=== PATIENT | male | born 1945 | race Caucasian/White ===

== ENCOUNTER 2017-03-10 20:35 | Inpatient (IN) ==
[2017-03-10] MEDS ORDERED: NS 1,000 ML IV ONE (20:54)
[2017-03-10] MEDS: SALINE FLUSH 10ml SYRINGE IVF PRN ×2 (21:03→21:29)
[2017-03-10] MEDS ORDERED: KETOROLAC 30 MG/ML INJECTION IVP ONE (21:20)
[2017-03-10] MEDS ORDERED: ACETAMINOPHEN 500 MG TABLET PO ONE (21:20)
--- NOTE | 2017-03-10 21:20 | Emergency Department Report ---
Fever HPI - General Chief Complaint: Fever Stated Complaint: fever, fatigue, weakness Time Seen by Provider: 03/10/17 20:38 Source: patient, family Mode of arrival: ambulatory Limitations: no limitations - History of Present Illness HPI Narrative: Patient has been having profound weakness, fatigue, shortness of breath with exertion, fluctuating fevers, and mild aching abdominal pain for 2-1/2 weeks. Patient has been seen several times as an outpatient with Dr. Zarate, has had negative lab testing, negative flu testing 2, a normal chest x-ray, and was told that he was dehydrated. Patient has had IV fluids as an outpatient as well. This weekend patient began running higher fevers up to 101.8, with increasing symptoms of fatigue and shortness of breath on exertion. - Related Data Home Medications Medication Instructions Recorded Confirmed Aspirin [Aspir 81] 81 mg PO DAILY #0 03/09/11 03/10/17 Cetirizine HCl 10 mg PO DAILY #0 03/09/11 03/10/17 Lisinopril 20 mg PO DAILY #0 03/09/11 03/10/17 Meloxicam 15 mg PO DAILY #0 03/09/11 03/10/17 Metoprolol Tartrate 50 mg PO HS #0 03/09/11 03/10/17 Mometasone Furoate [Nasonex] 2 spray NS PRN #0 03/09/11 03/10/17 Multivitamins (Multivitamin) 1 tab PO DAILY #0 03/09/11 03/10/17 Omeprazole 20 mg PO DAILY #0 03/09/11 03/10/17 Simvastatin 40 mg PO HS #0 03/09/11 03/10/17 Lisinopril/Hctz 11/29.5 [Prinzide 2 tab PO DAILY 03/10/17 03/10/17 10.5] Metoprolol Tartrate 100 mg PO DAILY 03/10/17 03/10/17 Allergies Allergy/AdvReac Type Severity Reaction Status Date / Time amoxicillin Allergy Mild Rash Verified 03/10/17 21:43 Review of Systems All systems: reviewed and negative except as stated PFSH Patient Stated Medical History Hypertension Yes Gastroesophageal Reflux Yes Disease Hypertension High cholesterol GERD Surgical History: Tonsillectomy - Social History Smoking status: Never smoker Substance use type: does not use Alcohol intake frequency: does not drink Physical Exam - Limitations Limitations: no limitations - General General appearance: alert, other (on initial presentation patient had low blood pressure and was diaphoretic after walking from the car to the lobby. After being placed on a cot in a flat/supine position patient's blood pressure improved to 98/57 and his diaphoresis resolved.) - Normal Exams: Head:: Normocephalic without trauma Eyes:: Pupils are PERRLA w/ EOMI, No scleral icterus, irritation, or foreign bodies noted ENMT:: No facial trauma, nasal exudates, pharyngeal erythema, or exudates are noted Neck:: Full range of motion, without adenopathy, JVD, bruits or thyromegaly Chest/Respirations:: Clear all marquez, with good airflow, and symmetry bilaterally Cardiovascular:: Regular rate and rhythm, without murmur or gallop, Pulses 2+ all extremities, capillary refill, <2 seconds all extremities Abdomen:: Bowel sounds positive, soft, non-tender, non-distended, no hepatosplenomegaly, masses or bruits noted Lymphatic:: No lymphadenopathy, or lymphedema noted Musculoskeletal:: No tenderness, or deformity noted, good range of motion, all extremities Integumentary:: No rashes, hives, or bruising noted, hair and nails, without abnormality Neurological:: Patient is alert, and oriented, cranial nerves, motor/sensory/ cerebellar, exams w/o gross deficits, to observation Psychiatric:: Patient exhibits, appropriate attention, emotion and affect - Abdominal Exam Abdominal exam: Present: soft, tenderness (mild right sided tenderness, no guarding no rebounding, no point tenderness), diminished bowel sounds. Absent: distention Course Vital Signs Temperature 97.6 F 03/10/17 20:41 Pulse Rate 74 03/10/17 20:41 Respiratory Rate 16 03/10/17 20:41 Blood Pressure 83/52 03/10/17 20:41 Pulse Oximetry 94 03/10/17 20:41 Temperature 97.6 F 03/10/17 20:41 Pulse Rate 67 03/10/17 22:30 Respiratory Rate 19 03/10/17 22:30 Blood Pressure 88/52 03/10/17 22:30 Pulse Oximetry 97 03/10/17 22:30 Fever - MDM Narrative Medical decision making narrative: Patient given 1 L saline IV fluid bolus, Toradol 30 mg, Tylenol 1 g CBC, CMP, respiratory panel, chest x-ray, UA all normal. After 1 L normal saline , patient continues to be hypotensive, but is not tachycardic. He does state that he feels better after the IV fluids. Case is discussed with Dr. Souza, we will admit for persistent hypotension associated with febrile illness. Of note, nurses were talking with the patient and after full review of systems in which the patient denied diarrhea, he admitted that he had only had a few "watery stools today." - Lab Data Result diagrams: 03/10/17 21:06 03/10/17 21:06 Lab Results 03/10/17 03/10/17 03/10/17 Range/Units 21:06 21:06 21:12 WBC 7.8 (4.5-11.0) T/MM3 RBC 4.11 L (4.50-5.90) M/MM3 Hgb 13.0 L (13.5-17.5) GM/DL Hct 37.1 L (41-53) % MCV 90.3 (80-100) UM3 MCH 31.6 (26-34) UUG MCHC 35.0 (31-37) GM/DL RDW Std Deviation 48.2 (36.9-50.2) FL Plt Count 190 (130-400) T/MM3 MPV 10.6 (9.4-12.4) UM3 Immature Gran % (Auto) 0.4 (0.0-0.5) % Neut % (Auto) 52.9 (33-66) % Lymph % (Auto) 34.8 (23-45) % [place] % (Auto) 9.6 H (0-9.0) % Eos % (Auto) 0.4 (0-4) % Baso % (Auto) 1.9 (0-2) % Neut # (Auto) 4.1 (1.8-7.7) T/MM3 Lymph # (Auto) 2.7 (1-4.8) T/MM3 [place] # (Auto) 0.8 (0-0.8) T/MM3 Eos # (Auto) 0.0 (0-0.5) T/MM3 Baso # (Auto) 0.2 (0-0.2) T/MM3 Abs Immat Gran (auto) 0.03 (0.00-0.03) T/MM3 Turbidity < 20 (0-20) Sodium 134 (134-144) MEQ/L Potassium 3.2 L (3.6-5) MEQ/L Chloride 100 (98-107) MEQ/L Carbon Dioxide 26 (22-30) MEQ/L Anion Gap 8 (5-15) MEQ/L BUN 21.0 H (9-20) MG/DL Creatinine 1.7 H (0.8-1.5) MG/DL GFR Calculation 40 BUN/Creatinine Ratio 12 (6-26) RATIO Glucose 112 H (75-110) MG/DL Calculated Osmolality 262 (261-280) MOSM/KG Calcium 7.8 L (8.4-10.2) MG/DL Total Bilirubin 0.60 (0.20-1.30) MG/DL Conjugated Bilirubin 0.00 (0.00-0.30) MG/DL Unconjugated Bilirubin 0.20 (0.00-1.1) MG/DL Icterus Index < 2 (0-7) AST 81 H (17-59) U/L ALT 87 H (21-72) U/L Alkaline Phosphatase 92 (38-126) U/L Troponin I < 0.012 (0-0.12) ng/ml B-Natriuretic Peptide 248 H (0-175) pg/mL Total Protein 6.8 (6.3-8.2) G/DL Albumin 3.4 L (3.5-5.0) G/DL Globulin 3.4 (2.4-3.6) G/DL Albumin/Globulin Ratio 1.0 L (1.1-2.2) RATIO Plasma Lactate 1.1 (0.6-2.2) MMOL/L Specimen Hemolysis < 15 (0-25) Ur Collection Type Urine Color (YELLOW) Urine Clarity Urine pH (5.0-8.0) Ur Specific [place] (1.015-1.025) Urine Protein (NEGATIVE) Urine Glucose (UA) (NEGATIVE) Urine Ketones (NEGATIVE) Urine Occult Blood (NEGATIVE) Urine Nitrate (NEGATIVE) Urine Bilirubin (NEGATIVE) Urine Urobilinogen (NORMAL) EU/DL Ur Leukocyte Esterase (NEGATIVE) Urinalysis Comment Adenovirus (PCR) Negative (Negative) B.parapertussis DNA PCR Negative (Negative) C. pneumoniae DNA (PCR) Negative (Negative) Coronavirus OC43 (PCR) Negative (Negative) Coronavirus HKU1 (PCR) Negative (Negative) Coronavirus 229E (PCR) Negative (Negative) Coronavirus NL63 (PCR) Negative (Negative) Human Metapneumovir PCR Negative (Negative) Influenza Type A (PCR) Negative (Negative) Influenza Type B (PCR) Negative (Negative) M. pneumoniae (PCR) Negative (Negative) Parainfluenza 1 (PCR) Negative (Negative) Parainfluenza 2 (PCR) Negative (Negative) Parainfluenza 3 (PCR) Negative (Negative) Parainfluenza 4 (PCR) Negative (Negative) RSV (PCR) Negative (Negative) Entero/Rhino (PCR) Negative (Negative) 03/10/17 Range/Units 23:44 WBC (4.5-11.0) T/MM3 RBC (4.50-5.90) M/MM3 Hgb (13.5-17.5) GM/DL Hct (41-53) % MCV (80-100) UM3 MCH (26-34) UUG MCHC (31-37) GM/DL RDW Std Deviation (36.9-50.2) FL Plt Count (130-400) T/MM3 MPV (9.4-12.4) UM3 Immature Gran % (Auto) (0.0-0.5) % Neut % (Auto) (33-66) % Lymph % (Auto) (23-45) % [place] % (Auto) (0-9.0) % Eos % (Auto) (0-4) % Baso % (Auto) (0-2) % Neut # (Auto) (1.8-7.7) T/MM3 Lymph # (Auto) (1-4.8) T/MM3 [place] # (Auto) (0-0.8) T/MM3 Eos # (Auto) (0-0.5) T/MM3 Baso # (Auto) (0-0.2) T/MM3 Abs Immat Gran (auto) (0.00-0.03) T/MM3 Turbidity (0-20) Sodium (134-144) MEQ/L Potassium (3.6-5) MEQ/L Chloride (98-107) MEQ/L Carbon Dioxide (22-30) MEQ/L Anion Gap (5-15) MEQ/L BUN (9-20) MG/DL Creatinine (0.8-1.5) MG/DL GFR Calculation BUN/Creatinine Ratio (6-26) RATIO Glucose (75-110) MG/DL Calculated Osmolality (261-280) MOSM/KG Calcium (8.4-10.2) MG/DL Total Bilirubin (0.20-1.30) MG/DL Conjugated Bilirubin (0.00-0.30) MG/DL Unconjugated Bilirubin (0.00-1.1) MG/DL Icterus Index (0-7) AST (17-59) U/L ALT (21-72) U/L Alkaline Phosphatase (38-126) U/L Troponin I (0-0.12) ng/ml B-Natriuretic Peptide (0-175) pg/mL Total Protein (6.3-8.2) G/DL Albumin (3.5-5.0) G/DL Globulin (2.4-3.6) G/DL Albumin/Globulin Ratio (1.1-2.2) RATIO Plasma Lactate (0.6-2.2) MMOL/L Specimen Hemolysis (0-25) Ur Collection Type Urine, void-cc/notcc Urine Color Yellow (YELLOW) Urine Clarity Sl cloudy Urine pH 5.5 (5.0-8.0) Ur Specific [place] 1.020 (1.015-1.025) Urine Protein Trace A (NEGATIVE) Urine Glucose (UA) Negative (NEGATIVE) Urine Ketones Negative (NEGATIVE) Urine Occult Blood Trace-intact (NEGATIVE) Urine Nitrate Negative (NEGATIVE) Urine Bilirubin Negative (NEGATIVE) Urine Urobilinogen 0.2 (NORMAL) EU/DL Ur Leukocyte Esterase Negative (NEGATIVE) Urinalysis Comment Microscopic not ind. Adenovirus (PCR) (Negative) B.parapertussis DNA PCR (Negative) C. pneumoniae DNA (PCR) (Negative) Coronavirus OC43 (PCR) (Negative) Coronavirus HKU1 (PCR) (Negative) Coronavirus 229E (PCR) (Negative) Coronavirus NL63 (PCR) (Negative) Human Metapneumovir PCR (Negative) Influenza Type A (PCR) (Negative) Influenza Type B (PCR) (Negative) M. pneumoniae (PCR) (Negative) Parainfluenza 1 (PCR) (Negative) Parainfluenza 2 (PCR) (Negative) Parainfluenza 3 (PCR) (Negative) Parainfluenza 4 (PCR) (Negative) RSV (PCR) (Negative) Entero/Rhino (PCR) (Negative) Disposition Clinical Impression: Febrile illness, acute Hypotension Qualifiers: Hypotension type: unspecified hypotension type Qualified Code(s): I95.9 - Hypotension, unspecified Disposition: 02 To [facility] [place] Acute Care Condition: Improved Prescriptions: No Action Omeprazole 20 mg PO DAILY #0 Metoprolol Tartrate 50 mg PO HS #0 Lisinopril 20 mg PO DAILY #0 Simvastatin 40 mg PO HS #0 Meloxicam 15 mg PO DAILY #0 Multivitamins (Multivitamin) 1 tab PO DAILY #0 Lisinopril/Hctz 10/12.5 [Prinzide 10/12.5] 2 tab PO DAILY Cetirizine HCl 10 mg PO DAILY #0 Mometasone Furoate [Nasonex] 2 spray NS PRN #0 Aspirin [Aspir 81] 81 mg PO DAILY #0 Metoprolol Tartrate 100 mg PO DAILY Referrals: Di Linton DO [Family Provider] - - Seen By: physician
[2017-03-11] MEDS ORDERED: ACETAMINOPHEN 650 MG SUPPOSITORY PR PRN (01:06)
[2017-03-11] MEDS ORDERED: ONDANSETRON 4 MG/2 ML INJECTION IVP PRN (01:06)
[2017-03-11] MEDS: NS with KCL 20 mEq 1,000 ML IV SCH ×7 (01:20→22:13)
[2017-03-11 01:35] VITALS: BMI 35.8
--- NOTE | 2017-03-11 02:00 | History & Physical Report ---
History of Present Illness Date: 03/11/17 Chief complaint: weakness HPI: Patient seen with nursing assitance on 03/11/2017 via telemedicine. Mr. Fatima is a 71yo man with h/o HTN, dyslipidemia, and class 2 obesity but no DM2, CAD, or CVA hx. He has been weak progressively for over a week with inability to ambulate today, but no syncope. He has been lightheaded with standing. No pain, rashes, sob. No recent medication changes. He has not had a SBP less than 90 that he knows of before. Review of Systems All systems PM: 10-point ROS was reviewed, no additional remarkable complaints except Past Medical History Patient Stated Medical History Hypertension Yes Gastroesophageal Reflux Yes Disease Surgical History: Tonsillectomy Family History Updates: diabetes in both parents with father dying from complications of perforated viscus - Social History Smoking status: Never smoker Alcohol intake frequency: does not drink Housing: house Household members: spouse Medications Home Medications Medication Instructions Recorded Confirmed Type Aspirin [Aspir 81] 81 mg PO DAILY #0 03/09/11 03/10/17 History Cetirizine HCl 10 mg PO DAILY #0 03/09/11 03/10/17 History Lisinopril 20 mg PO DAILY #0 03/09/11 03/10/17 History Meloxicam 15 mg PO DAILY #0 03/09/11 03/10/17 History Metoprolol Tartrate 50 mg PO HS #0 03/09/11 03/10/17 History Mometasone Furoate [Nasonex] 2 spray NS PRN #0 03/09/11 03/10/17 History Multivitamins (Multivitamin) 1 tab PO DAILY #0 03/09/11 03/10/17 History Omeprazole 20 mg PO DAILY #0 03/09/11 03/10/17 History Simvastatin 40 mg PO HS #0 03/09/11 03/10/17 History Lisinopril/Hctz 11/29.5 [Prinzide 2 tab PO DAILY 03/10/17 03/10/17 History 11/29.5] Metoprolol Tartrate 100 mg PO DAILY 03/10/17 03/10/17 History Allergies Allergy/AdvReac Type Severity Reaction Status Date / Time amoxicillin Allergy Mild Rash Verified 03/11/17 01:25 Exam Vital Signs: Temperature 96.3 F L 03/11/17 01:21 Pulse Rate 73 03/11/17 01:21 Respiratory Rate 20 03/11/17 01:21 Blood Pressure 105/54 03/11/17 01:21 Pulse Oximetry 97 03/11/17 01:21 Telemetry Rhythm: Sinus Rhythm Height/Weight/BMI: Height 1.78 m Weight 113.2 kg Body Mass Index 35.8 - Constitutional Present: no acute distress - Routine HEENT Exam Head: Present: normocephalic Eye: Present: EOMI - Routine Neck Exam Present: full ROM - Routine Respiratory Exam Present: CTA bilaterally. Absent: accessory muscle use, prolonged expiratory phase, wheezes - Routine Cardiovascular Exam Present: RRR, S1, S2, no murmur - Routine Abdominal Exam Present: soft, normoactive bowel sounds, distended - Routine Extremities Exam Absent: cyanosis, clubbing - Routine Back/Spine/Pelvis Exam Back/Spine: Present: full ROM - Routine Skin Exam Present: intact. Absent: cyanosis - Routine Neurological Exam Present: alert, oriented X3, CN II-XII intact - Routine Psychiatric Exam Present: normal affect Results - Labs CBC & Chem 7: 03/11/17 08:16 03/11/17 11:49 Assessment and Plan (1) Hypotension Current visit: Yes Status: Acute (2) Essential hypertension Current visit: Yes Status: Acute (3) Dyslipidemia Current visit: Yes Status: Acute (4) Obesity (BMI 35.0-39.9 without comorbidity) Current visit: Yes Status: Acute (5) CKD (chronic kidney disease) stage 3, GFR 30-59 ml/min Current visit: Yes Status: Acute Assessment and Plan: 1. Weakness and debility likely due to hypotension et al. Uncertain if just all due to antihypertensives with those to be held. No obvious infection, but need UA. Check TSH, replace K and recheck with Mg. Check inflammatory markers and cortisol. 2. Essential HTN--hold meds with no h/o arrhythmias. Tele. 3. Dyslipidemia on statin. 4. Hyperglycemia with class 2 obesity BMI 35.8, but not to diabetic level. Recheck. 5. CKD3? Recently as high as creat 2.1, hydrated and recheck. DVT Prophylaxis: SCD's Resuscitation Status: Full Code - Physician Narrative Physician: Elza Li MD Narrative: Date: 03/11/17 Time: 1020 Dr. Calle's note reviewed. Mr. Fatima interviewed and examined. CC: Weakness, fever HPI: Damion was seen this morning after hospitalization overnight for progressive weakness over the past 7 days accompanied by fevers up to 101.8 at home. He describes some generalized lower abdominal cramps with mild nausea but no emesis. He reports having loose stools. He denies cough or urinary symptoms. Oral intake has been poor during this time. He reports having to force himself to eat or drink and that everything tastes bad. He saw his primary care physician last week and was instructed to drink Gatorade or Powerade which he's been trying to do but reports even that has been an effort. He's been lightheaded standing and blood pressure at home was less than 90; on arrival in the emergency room blood pressure was 83/52. Temperature was low overnight. Patient describes having generalized myalgias in addition to symptoms described above but reports that he had an influenza swab done in the emergency room and at Dr. Linton's office both of which were negative. PH/SH/FH: agree with that recorded above with additional history of hyperlipidemia, DJD, obstructive sleep apnea with home CPAP, and BPH. Remainder of past histories are as described by Dr. Calle. Patient's is his alternate decision maker and he is a full code. ROS: 10 point review as per Dr. Calle with additions of the bad meniscus in his knee, chronic hearing loss, trouble swallowing for about 3 days, and chronic exertional dyspnea. EXAM: General-NAD, alert, fluent speech; 98.7, 95, 111/65 HEENT-PERRL, EOMI without nystagmus, conjunctiva clear, sclera anicteric, conjugate gaze, facial structures symmetric, oropharynx dry, neck supple and without adenopathy Lungs-respirations nonlabored, good airflow, breath sounds clear Cardiac-regular rhythm, S1-S2, tachycardic Abd-obese, soft, tender to palpation in the epigastrium/right upper quadrant and periumbilical region with guarding; Owen sign positive, diminished bowel sounds Ext-without edema Skin-without rash or wounds Neuro-cranial nerves 3-12 intact, motor tone/power normal, MAEW, no tremor, sensation intact to light touch 4 extremities Psych-calm, cooperative DATA: White count 6.5, differential unremarkable, hemoglobin 12.9; electrolytes unremarkable, BUN 20, creatinine 1.6; bilirubin/alkaline phosphatase within normal limits, AST 102, ALT 97 Lactic acid 1.1, procalcitonin 0.48, CRP 49 TSH 1.2, morning cortisol pending Urinalysis with 5-10 WBCs, negative nitrite, negative ketones Urine sodium 29, urine creatinine 205 Chest x-ray by my review unremarkable; EKG also reviewed by myself demonstrating sinus rhythm with normal waveforms. A/P: Hypotension Abdominal pain Transaminitis Dehydration, FeNa-0.17% Hypokalemia, POA Febrile illness Anorexia, present to admission CKD, stage III Hypertension Hyperlipidemia Obesity, BMI 36.1 Damion presents with 1 week anorexia/poor intake of fluids with increasing dizziness and weakness suggesting dehydration. Urine sodium/fractional excretion consistent with dehydration. Hydration initiated overnight in conjunction with potassium replacement; continues to require IV fluids at this time. Abdomen is quite tender especially in the upper abdomen and right upper quadrant. Will image with gallbladder sonogram due to renal insufficiency but CT may be needed. Switch to IV PPI, hold oral antihypertensives. Anticipate surgical consultation due to marked tenderness. Lactic acid/procalcitonin are not elevated. Blood cultures pending. Continue telemetry. Sepsis Assessment - Evaluation SIRS Criteria: temperature < 96.8 (document), temperature > 100.9 (by history), RR > 20 Severe Sepsis: hypotension (SBP <90 or MAP <65 x2 readings) Hospital Course Summary Disclaimer: The visit summary below is not to be considered part of the above Progress Note.
--- NOTE | 2017-03-11 07:38 | XRay Report ---
Indication: cough, fever, SOB XR chest 2V: Comparison: 03/06/2017 Technique: PA and lateral chest Findings: Patient showed similar heart size the previous examination with no new focal parenchymal consolidations or pleural effusions. No acute new bony findings are identified. Central vascularity and mediastinum are stable. Impression: Little change since previous study with no acute new findings. .
[2017-03-11] MEDS ORDERED: OMEPRAZOLE 20 MG CAPSULE PO SCH (09:00)
[2017-03-11] MEDS: CETIRIZINE 10 MG TABLET PO SCH (09:55)
[2017-03-11] MEDS: ASPIRIN *EC* 81 MG TABLET PO SCH (09:55)
--- NOTE | 2017-03-11 16:57 | General Surgery Consult Note ---
Consult date: 03/11/17 Attending Physician: Elza Li MD Reason for consult: abdominal pain [facility] Patient Stated Medical History Hypertension Hypercholesterolemia GERD Arthritis Surgical History: Tonsillectomy,. Right meniscus repair [id number]. Cysto abouat 2010 Dr. Cook, "normal" Family History: diabetes in both parents with father dying from complications of perforated viscus - Social History Smoking status: Never smoker Substance use type: does not use Alcohol intake frequency: does not drink Housing: house Household members: spouse Previous occupational history: [employer], Retired dentist Medications Home Medications Medication Instructions Recorded Confirmed Type Aspirin [Aspir 81] 81 mg PO DAILY #0 03/09/11 03/10/17 History Cetirizine HCl 10 mg PO DAILY #0 03/09/11 03/10/17 History Lisinopril 20 mg PO DAILY #0 03/09/11 03/10/17 History Meloxicam 15 mg PO DAILY #0 03/09/11 03/10/17 History Metoprolol Tartrate 50 mg PO HS #0 03/09/11 03/10/17 History Mometasone Furoate [Nasonex] 2 spray NS PRN #0 03/09/11 03/10/17 History Multivitamins (Multivitamin) 1 tab PO DAILY #0 03/09/11 03/10/17 History Omeprazole 20 mg PO DAILY #0 03/09/11 03/10/17 History Simvastatin 40 mg PO HS #0 03/09/11 03/10/17 History Lisinopril/Hctz 10/12.5 [Prinzide 2 tab PO DAILY 03/10/17 03/10/17 History 10/12.5] Metoprolol Tartrate 100 mg PO DAILY 03/10/17 03/10/17 History Allergies Allergy/AdvReac Type Severity Reaction Status Date / Time amoxicillin Allergy Mild Rash Verified 03/11/17 01:25 Review of Systems - General General: Present: fever, other (fatigue) - Eyes/Ears/Nose/Throat Ear Nose Throat: Present: hearing problems - Respiratory Respiratory: Present: difficulty breathing (on exertion) - Gastrointestinal Gastrointestinal: Present: other (abd pain, GERD) - Musculoskeletal Musculoskeletal: Present: back pain, joint pain (hips and knees) - Neurological Neurological: Present: other (headache) - Vital Signs Last Vital Signs Temp 100.6 F H 03/11/17 15:43 Pulse 110 H 03/11/17 15:43 Resp 18 03/11/17 15:43 BP 109/64 03/11/17 15:43 Pulse Ox 92 03/11/17 15:43 - Laboratory Result Diagrams: 03/11/17 08:16 03/11/17 11:49 General Surgery Results - Results Labs: 03/11/17 08:16 03/11/17 11:49 Hospital Course Summary Disclaimer: The visit summary below is not to be considered part of the above Progress Note.
--- NOTE | 2017-03-11 18:24 | Consultation ---
DATE OF CONSULTATION 03/11/2017 FINDINGS Mr. Fatima is a 71-year-old gentleman whom I was asked to see today as a result of his history and physical findings of abdominal pain. Patient informs me that over the last several weeks he has been developing intermittent fevers and chills. He states that he has become progressively more weak and fatigue. The patient was recently admitted to our hospital for further evaluation. He was found to be hypotensive in the ER. Upon questioning the patient he denies much in the way of abdominal pain. He states that he has had perhaps some minimal discomfort within his left lower quadrant/left midabdomen. Patient states that he did notice today that when the "doctor was examining him" that he did have a component of abdominal discomfort that he had not previously noted. Upon questioning the patient he denies any history for melena, hematochezia or change in bowel habits. His primary complaint was that of intermittent fevers, chills and general malaise. PAST MEDICAL HISTORY, PAST SURGICAL HISTORY, MEDICATIONS, ALLERGIES, SOCIAL HISTORY, FAMILY HISTORY, REVIEW OF SYSTEMS Performed by my nurse practitioner, Kunal Aguero APRN. PHYSICAL EXAMINATION GENERAL: Mr. Fatima this evening did not appear to be in acute distress. VITAL SIGNS: Temperature 100.6, pulse 110, respirations 18, blood pressure 109/ 64, SAO2 92% on room air. HEENT: Normocephalic. Pupils are equally round and react to light and accommodation. CHEST: Clear to auscultation bilaterally. HEART: Regular rate and rhythm. Normal S1 and S2 without gallops, murmurs or clicks. ABDOMEN: For the most part his abdomen was soft and nontender this evening. With fairly firm palpation the patient did complain of some minimal discomfort within the right upper quadrant as well as within the left lower quadrant. This evening there was no component of guarding or rebound. I did not appreciate evidence of hepatosplenomegaly or other abnormal masses. LABORATORY/RADIOGRAPHIC EVALUATION Patient had a CBC today and his white count was 6.5. Hemoglobin is 12.9. No significant left shift was noted. The patient had a CMP today and his AST and ALT were minimally elevated at 102 and 97, respectively. CRP was obtained and found be elevated at 49.0. Lipase was normal 114. Total bilirubin is normal at 0.5. Abdominal ultrasound has been ordered is pending at time of dictation. ASSESSMENT 71-year-old gentleman with a fbutb-co-kmct-week history of intermittent fever, chills and increasing general malaise. Exact etiology unclear. Patient without acute surgical abdomen at this time. PLAN Will await his abdominal sonogram results. As stated above, I do not feel at this point time that the patient has an acute surgical process. Will continue to follow along closely with serial abdominal examinations as well as await his pending abdominal ultrasound results. KATHERINE
[2017-03-11] MEDS: ACETAMINOPHEN 325 MG TABLET PO PRN (19:03)
--- NOTE | 2017-03-11 19:06 | Ultrasound Report ---
Indication: abn LFT, RUQ/epigastric pain PROCEDURE: US gall bladder: Encounter: Initial Comparison: None. FINDINGS: The gallbladder is thin-walled and nondistended without stones. CBD is normal measuring 4.4 mm. The pancreas is largely obscured by bowel gas. The liver is diffusely echogenic in echotexture without focal abnormality. Color flow Doppler ultrasound was used to evaluate the quality of flow within the portal vein and to document flow in the appropriate direction.. The IVC is unremarkable. No free fluid. The right kidney is unremarkable measuring 10.8 cm in length. IMPRESSION: No definite cholelithiasis or evidence for cholecystitis per .
[2017-03-11] MEDS ORDERED: IOHEXOL 300mg/ml 100ml INJECTION ONE (19:30)
[2017-03-11] MEDS ORDERED: NS 100 ML ONE (19:30)
[2017-03-11] MEDS ORDERED: SALINE FLUSH 10ml SYRINGE ONE (19:30)
[2017-03-11] MEDS: PANTOPRAZOLE 40 MG INJECTION IVP SCH (20:26)
[2017-03-11] MEDS: LEVOFLOXACIN PB 750 MG/150 ML BAG IV SCH (20:27)
[2017-03-11] MEDS: SIMVASTATIN 40 MG TABLET PO SCH (20:27)
[2017-03-11] MEDS: NS 1,000 ML IV SCH (22:12)
[2017-03-11] MEDS: MetroNIDAZOLE PB 500 MG/100 ML BAG IV SCH (22:12)
[2017-03-12] MEDS: NS 1,000 ML IV SCH ×4 (01:32→22:35)
[2017-03-12] MEDS: ACETAMINOPHEN 325 MG TABLET PO PRN ×3 (01:34→21:42)
[2017-03-12] MEDS: MetroNIDAZOLE PB 500 MG/100 ML BAG IV SCH ×3 (04:30→21:30)
--- NOTE | 2017-03-12 09:07 | CT Scan Report ---
Indication: fever/abd pain PROCEDURE: CT abdomen pelvis w con: Encounter: Initial Comparison: None. Findings: CT ABDOMEN: Included portions of the lung bases are clear. Heart size normal. No pleural effusion. There is a small hiatal hernia. There are a few small renal cortical cysts. The liver, spleen, kidneys, pancreas, and adrenal glands are otherwise normal. The gallbladder is thin walled and nondistended, without stones. The abdominal aorta is nonaneurysmal with scattered calcific atherosclerotic disease. There is a retroaortic left renal vein. There is no retroperitoneal or mesenteric adenopathy. No definite bowel distention or bowel wall thickening. CT PELVIS: There is pancolonic diverticulosis with both left-sided and right-sided colonic diverticula. No definite peridiverticular inflammatory changes. There is no pelvic sidewall adenopathy. No free fluid. No definite bony destructive process. The urinary bladder is not distended. There is a small bladder diverticulum to the posterior left side of the urinary bladder. The prostate gland is mildly enlarged and heterogeneous with a central calcification and prominent impression on the base of the urinary bladder. A normal appendix is identified. There is moderate degenerative disc disease of the thoracolumbar junction. IMPRESSION: Pancolonic diverticulosis without evidence of diverticulitis.. .
[2017-03-12] MEDS: PANTOPRAZOLE 40 MG INJECTION IVP SCH ×2 (11:52→20:09)
[2017-03-12] MEDS: CETIRIZINE 10 MG TABLET PO SCH (11:54)
[2017-03-12] MEDS: ASPIRIN *EC* 81 MG TABLET PO SCH (11:54)
--- NOTE | 2017-03-12 15:21 | Progress Note ---
- Date 03/12/17 Subjective: Damion was seen with his at bedside this morning. He reports that he had 3 loose, watery stools this morning without any bleeding. He reports being on an antibiotic (believed to be Levaquin) for 7 days starting 02/26 for sinus infection but no other courses of antibiotics in the recent past. Abdominal cramping is improved but not gone. Maximum temperature yesterday was 103.2 but he has subsequently defervesced. He is slightly short of breath and denies cough ; nursing told him he was wheezing earlier today but he has not noted the same. He denied chest pain, palpitations, or nausea. He's been voiding without dysuria. Objective Vital signs: Temperature 98.8 F 03/12/17 08:00 Pulse Rate 112 H 03/12/17 11:17 Respiratory Rate 24 03/12/17 11:17 Blood Pressure 109/67 03/12/17 08:00 Pulse Oximetry 95 03/12/17 11:17 I/O 3378/950 NAD, alert, fluent speech HEENT EOMI, conjunctiva clear, sclera anicteric, oral membranes clear Respirations nonlabored, good airflow, breath sounds clear, no wheezing present Regular rhythm, S1-S2 2, low-grade tachycardia Abdomen obese, soft, tender to palpation in the epigastrium where he smiled peritoneal signs and guarding. Bowel sounds are present. Right upper quadrant less tender than on examination yesterday Extremities without edema Moving all extremities well Height/Weight/BMI: Height 1.78 m Weight 116.3 kg Body Mass Index 35.8 Results - Labs CBC & Chem 7: 03/12/17 04:33 03/12/17 04:33 Labs: S69 B11 L19 M1 Mg 1.9, Phos 2.6, alb 2.7 Stool negative for C. difficile and other enteric pathogens Microbiology Results: Microbiology 03/11/17 19:51 Peripheral/Iv Start Blood Culture - Preliminary Culture Initiated - Results Pending 03/11/17 19:58 Peripheral/Iv Start Blood Culture - Preliminary Culture Initiated - Results Pending - Imaging and Cardiology CT scan - abdomen Status: image reviewed by me (CT scan reviewed by myself reveals multiple diverticulum but no diverticulitis, dilated gall bladder without stones; no evidence of abscess or other acute intra-abdominal pathology) Assessment and Plan (1) Hypotension Current visit: Yes Status: Acute (2) Febrile illness, acute Current visit: Yes Status: Acute Assessment and Plan: Assessment: Hypotension Severe sepsis Abdominal pain Transaminitis Dehydration, FeNa-0.17% Hypokalemia, POA Febrile illness Anorexia, present to admission CKD, stage III Hypertension Hyperlipidemia Obesity, BMI 36.1 Plan: Maximum temperature 102.2 degrees yesterday evening-empirically started on Levaquin/metronidazole for abdominal coverage. Blood cultures 4 negative of present. Imaging does not reveal source for infection, diarrhea today but C. difficile is negative and no other enteric pathogens identified. Overnight patient met criteria for severe sepsis with fever, tachypnea, tachycardia, and creatinine above baseline (although may be due to dehydration) . 11% bands present today but total white count remains normal. Discussed with Dr. Aguilera-clear liquids being initiated, may require EGD although that would not explain fever even if explain pain. Chest x-ray today; was unremarkable prior to hydration. Respiratory viral panel negative. Renal function is improved significantly with hydration and potassium is improving. Acute hepatitis serologies neg in the office; [facility] RN reports patient has had low-grade fevers for the past couple of weeks but sources been unclear, white count consistently normal but transaminases elevated. has copies of AST/ALT from last August when they were normal. - Physician Narrative Narrative: Date: 03/12/17 Time: 1515 Sepsis Assessment - Evaluation SIRS Criteria: temperature > 100.9, pulse > 90 beats/minute Severe Sepsis: Creatinine >2.0 mg/dL or 0.5 mg/dL above baseline Hospital Course Summary Disclaimer: The visit summary below is not to be considered part of the above Progress Note. Hospital Course: 03/11/17 Damion presents with 1 week anorexia/poor intake of fluids with increasing dizziness and weakness suggesting dehydration. Urine sodium/fractional excretion consistent with dehydration. Hydration initiated overnight in conjunction with potassium replacement; continues to require IV fluids at this time. Abdomen is quite tender especially in the upper abdomen and right upper quadrant. Will image with gallbladder sonogram due to renal insufficiency but CT may be needed. Switch to IV PPI, hold oral antihypertensives. Anticipate surgical consultation due to marked tenderness. Lactic acid/procalcitonin are not elevated. Blood cultures pending. Continue telemetry. Biotic subsequently initiated when patient developed temperature of 103 1/23/18 Maximum temperature 102.2 degrees yesterday evening-empirically started on Levaquin/metronidazole for abdominal coverage. Blood cultures 4 negative of present. Imaging does not reveal source for infection, diarrhea today but C. difficile is negative and no other enteric pathogens identified. Overnight patient met criteria for severe sepsis with fever, tachypnea, tachycardia, and creatinine above baseline (although may be due to dehydration) . 11% bands present today but total white count remains normal. Discussed with Dr. Aguilera-clear liquids being initiated, may require EGD although that would not explain fever even if explain pain. Chest x-ray today; was unremarkable prior to hydration. Respiratory viral panel negative. Renal function is improved significantly with hydration and potassium is improving.
--- NOTE | 2017-03-12 16:58 | Progress Note ---
DATE OF SERVICE 03/12/2017 FINDINGS Mr. Kushal lucero was without complaints. He states that he is "hungry." Patient states that his abdominal pain is "about the same." He continues to have some abdominal discomfort within the epigastric region. He denies, however , severe abdominal pain. PHYSICAL EXAM VITAL SIGNS: Temperature 98.8. Pulse is elevated at 112. Blood pressure 109/ 67, SAO2 95% on HEENT: Normocephalic. Pupils are equally round and react to light and accommodation. CHEST: Clear to auscultation bilaterally. HEART: Regular rate and rhythm. Normal S1 and S2 without gallops, murmurs or clicks. ABDOMEN: Palpation of the abdomen does reveal some [id number] tenderness within the epigastric region. There was, however, no evidence for guarding or rebound. I do not appreciate evidence for hepatosplenomegaly or other abnormal masses. LABORATORY/RADIOGRAPHIC EVALUATION The patient had a CBC today and white count is stable at 6.4. Hemoglobin is stable at 11.6. Does have a slight left shift with 11% bands. BMP was obtained and found to be without marked abnormalities. The patient had a gallbladder ultrasound obtained yesterday that did not reveal any evidence for cholelithiasis or evidence for cholecystitis. He has subsequently undergone a CT scan of his abdomen and pelvis. CT scan did not reveal any acute changes. There was evidence for diverticulosis but no evidence for diverticulitis. ASSESSMENT 71-year-old gentleman with a several-week history of intermittent fevers, chills , increasing general malaise. Component of epigastric abdominal discomfort does not appear to be of a surgical process at this time. Peptic ulcer disease is within differential diagnosis. PLAN I do see the patient is already being treated empirically for peptic ulcer disease and is on IV Protonix. Will go ahead and add Carafate 1 g p.o. q.i.d. empirically. Will continue to follow along with serial abdominal examinations. Will begin the patient on clear liquids. If the patient's epigastric abdominal pain persists, may consider proceeding with esophagogastroduodenoscopy for further evaluation. [facility]
--- NOTE | 2017-03-12 17:01 | XRay Report ---
Indication: fever, dyspnea PROCEDURE: XR chest 2V: Encounter: Initial Comparison: 03/10/2017 Findings: Heart size is normal. The lungs are clear. There is no focal opacity to suggest atelectasis or pneumonia. No mediastinal or hilar adenopathy. No pleural effusion. There is no significant tortuosity of the descending thoracic aorta. There is moderate degenerative disc disease of the thoracic spine. IMPRESSION: No acute process. .
[2017-03-12] MEDS: SUCRALFATE 1 GM TABLET PO SCH ×2 (19:20→20:09)
[2017-03-12] MEDS: LEVOFLOXACIN PB 750 MG/150 ML BAG IV SCH (19:20)
[2017-03-12] MEDS: SIMVASTATIN 40 MG TABLET PO SCH (20:09)
[2017-03-12] MEDS: DOXYCYCLINE 100 MG in NS 250ml 250 ML IV SCH (22:35)
[2017-03-13] MEDS: NS 1,000 ML IV SCH ×3 (00:31→21:04)
[2017-03-13] MEDS: MetroNIDAZOLE PB 500 MG/100 ML BAG IV SCH ×2 (03:30→12:57)
[2017-03-13] MEDS: SUCRALFATE 1 GM TABLET PO SCH ×4 (06:06→21:02)
--- NOTE | 2017-03-13 09:10 | Infectious Disease Consult ---
Infectious Disease Consult Date of Consultation: 03/13/17 Requesting Physician: Elza Li Reason for Consultation: fever History of Present Illness: Mr. Fatima is a 71 y/o man who reports that he's been having fever for about 3 weeks. He also reports shaking chills and night sweats. He denies any localizing symptoms. On specific questioning, he reports some abdominal discomfort, but this doesn't seem very severe. He presented to the ED on 03/10 and was admitted. He states Dr. Aguilera gave him carafate for that. He reports a warm feeling in his head with the fever, but won't really call it a headache. He thinks his vision has been blurry intermittently. He denies any other specific complaints. He was hypotensive on admission, but this has resolved. He has had fevers up to 103. WBC is normal, lactate and PCT are normal. His transaminases are increasing. Blood cultures 03/10 and 03/[address] are NGTD[address] CXR and CT A/P have been unremarkable. Gallbladder ultrasound was unremarkable. Dr. Aguilera has seen and doesn't feel that there's any surgical cause for his abdominal pain and fever. He was started on levaquin and flagyl on 03/11, and doxy was added yesterday. Most recent fever was 102 last night. He doesn't think the antibiotics are making him feel much better. He denies any animal exposures, no insect bites. 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 Medications Home Medications Medication Instructions Recorded Confirmed Type Aspirin [Aspir 81] 81 mg PO DAILY #0 03/09/11 03/10/17 History Cetirizine HCl 10 mg PO DAILY #0 03/09/11 03/10/17 History Lisinopril 20 mg PO DAILY #0 03/09/11 03/10/17 History Meloxicam 15 mg PO DAILY #0 03/09/11 03/10/17 History Metoprolol Tartrate 50 mg PO HS #0 03/09/11 03/10/17 History Mometasone Furoate [Nasonex] 2 spray NS PRN #0 03/09/11 03/10/17 History Multivitamins (Multivitamin) 1 tab PO DAILY #0 03/09/11 03/10/17 History Omeprazole 20 mg PO DAILY #0 03/09/11 03/10/17 History Simvastatin 40 mg PO HS #0 03/09/11 03/10/17 History Lisinopril/Hctz 11/29.5 [Prinzide 2 tab PO DAILY 03/10/17 03/10/17 History 11/29.5] Metoprolol Tartrate 100 mg PO DAILY 03/10/17 03/10/17 History Allergies Allergy/AdvReac Type Severity Reaction Status Date / Time amoxicillin Allergy Mild Rash Verified 03/11/17 01:25 [facility] Patient Stated Medical History Hypertension Yes Gastroesophageal Reflux Yes Disease Surgical History: Tonsillectomy,. Right meniscus repair [id number]. Cysto abouat 2010 Dr. Cook, "normal" Family History: Sister and mother both had Parkinson's - Social History Smoking status: Never smoker Current occupational status: retired (dentist) Review of Systems All systems PM: 10-point ROS was reviewed, no additional remarkable complaints except - Constitutional Constitutional: Present: chills, fever(s), night sweats, weakness - EENMT Eyes: Present: blurry vision (intermittent) Mouth/Throat: Absent: sore throat - Cardiovascular Cardiovascular: Absent: chest pain - Respiratory Respiratory: Absent: cough, dyspnea - Gastrointestinal Gastrointestinal: Present: diarrhea (slightly loose). Absent: nausea, vomiting - Genitourinary Genitourinary: Absent: dysuria - Musculoskeletal Musculoskeletal: Present: myalgias ("vibrating sensation in muscles"). Absent: joint swelling - Integumentary/Breasts Integumentary: Absent: erythema, rash - Neurological Neurological: Absent: headache(s) Exam Vital Signs: Temperature 99.9 F 03/13/17 08:22 Pulse Rate 112 H 03/13/17 08:22 Respiratory Rate 24 03/13/17 08:22 Blood Pressure 130/69 03/13/17 08:22 Pulse Oximetry 92 03/13/17 08:22 Height/Weight/BMI: Height 1.78 m Weight 116.3 kg Body Mass Index 35.8 - Constitutional Present: no acute distress, well nourished, well developed - Routine HEENT Exam Head: Present: normocephalic, atraumatic Eye: Present: EOMI, PERRL ENT: Present: mucous membranes moist, oropharynx clear, dentition normal Comments: no tenderness or swelling over temples - Routine Neck Exam Present: supple. Absent: lymphadenopathy - Routine Respiratory Exam Present: CTA bilaterally - Routine Cardiovascular Exam Present: RRR - Routine Abdominal Exam Present: soft, normoactive bowel sounds, non distended. Absent: tenderness - Routine Extremities Exam Absent: cyanosis, clubbing, edema, joint swelling - Routine Skin Exam Present: intact. Absent: wounds, rash - Routine Neurological Exam Present: alert, oriented X3, CN II-XII intact. Absent: motor deficit - Routine Psychiatric Exam Present: normal affect, normal thought process Results - Labs CBC & Chem 7: 03/13/17 04:19 03/13/17 04:19 Microbiology Results: Microbiology 03/11/17 19:51 Peripheral/Iv Start Blood Culture - Preliminary No Growth After 1 Day 03/11/17 19:58 Peripheral/Iv Start Blood Culture - Preliminary No Growth After 1 Day - Impressions Signed Patient: Rodolfo Fatima MR#: [id number] : 1945 Age/Sex: 71 / M ADM Date: 03/11/17 Loc: [facility] DIS Date: = = = = = = = = = = = = = = = = = = = = = = = = = = = = = = = = = = = = = = = = = = = = = = = = = = = = = = = = = = = Date of Exam: 03/11/17 Ordering Provider: Elza Li MD Type of Exam(s): CT abdomen pelvis w con Reason for Exam(s): fever/abd pain Indication: fever/abd pain PROCEDURE: CT abdomen pelvis w con: Encounter: Initial Comparison: None. Findings: CT ABDOMEN: Included portions of the lung bases are clear. Heart size normal. No pleural effusion. There is a small hiatal hernia. There are a few small renal cortical cysts. The liver, spleen, kidneys, pancreas, and adrenal glands are otherwise normal. The gallbladder is thin walled and nondistended, without stones. The abdominal aorta is nonaneurysmal with scattered calcific atherosclerotic disease. There is a retroaortic left renal vein. There is no retroperitoneal or mesenteric adenopathy. No definite bowel distention or bowel wall thickening. CT PELVIS: There is pancolonic diverticulosis with both left-sided and right-sided colonic diverticula. No definite peridiverticular inflammatory changes. There is no pelvic sidewall adenopathy. No free fluid. No definite bony destructive process. The urinary bladder is not distended. There is a small bladder diverticulum to the posterior left side of the urinary bladder. The prostate gland is mildly enlarged and heterogeneous with a central calcification and prominent impression on the base of the urinary bladder. A normal appendix is identified. There is moderate degenerative disc disease of the thoracolumbar junction. IMPRESSION: Pancolonic diverticulosis without evidence of diverticulitis.. . Impression: FUO (fever, chills, night sweats for about 3 weeks) Elevated LFTs Hypotension and dehydration, improved HTN Obesity Dyslipidemia Recommendation: The imaging has essentially ruled out any abscesses or obvious malignancy. I wonder about PMR/GCA or hepatitis. Will check ESR. Consider temporal artery biopsy. Will check hepatitis serologies. Will also check Brucella, Q fever, Histoplasma tests, although he denies any animal exposures. Will check CMV, EBV serologies. I'd recommend stopping the levaquin and flagyl. Continue doxycycline for now.
--- NOTE | 2017-03-13 09:15 | General Surgery Progress Note ---
Subjective Patient reports: still having pain (states generally less than yesterday but increased pain with even small amounts of clear liquids.), fever (states he has episodes of chills then bundles up in the blankets and then gets to Hot and throws them off) - Vital Signs Last Vital Signs Temp 99.9 F 03/13/17 08:22 Pulse 112 H 03/13/17 08:22 Resp 24 03/13/17 08:22 BP 130/69 03/13/17 08:22 Pulse Ox 92 03/13/17 08:22 - Laboratory Result Diagrams: 03/13/17 04:19 03/13/17 04:19 - Microbiogy Microbiology 03/11/17 19:51 Peripheral/Iv Start Blood Culture - Preliminary No Growth After 1 Day 03/11/17 19:58 Peripheral/Iv Start Blood Culture - Preliminary No Growth After 1 Day - Abnormal Exam General: other (skin warm almost feverish and moist to touch) Abdominal: hypoactive bowel sounds, tender (epigastric and left side with moderate palpation) - Normal Exam General: awake, alert, oriented Cardiovascular: regular rate Respiratory: no labored breathing Psychiatric: normal affect Assessment and Plan (1) Abdominal pain Current Visit: Yes Status: Acute Plan: Would probably keep him on clear liquids for now. Dr. Aguilera added Carafate to his regime yesterday which may have helped a little between yesterday and today. Will reevaluate tomorrow and likely make him nothing by mouth after midnight tonight, Hospital Course Summary Disclaimer: The visit summary below is not to be considered part of the above Progress Note. Hospital Course: 03/11/17 Damion presents with 1 week anorexia/poor intake of fluids with increasing dizziness and weakness suggesting dehydration. Urine sodium/fractional excretion consistent with dehydration. Hydration initiated overnight in conjunction with potassium replacement; continues to require IV fluids at this time. Abdomen is quite tender especially in the upper abdomen and right upper quadrant. Will image with gallbladder sonogram due to renal insufficiency but CT may be needed. Switch to IV PPI, hold oral antihypertensives. Anticipate surgical consultation due to marked tenderness. Lactic acid/procalcitonin are not elevated. Blood cultures pending. Continue telemetry. Biotic subsequently initiated when patient developed temperature of 103 03/12/17 Maximum temperature 102.2 degrees yesterday evening-empirically started on Levaquin/metronidazole for abdominal coverage. Blood cultures 4 negative of present. Imaging does not reveal source for infection, diarrhea today but C. difficile is negative and no other enteric pathogens identified. Overnight patient met criteria for severe sepsis with fever, tachypnea, tachycardia, and creatinine above baseline (although may be due to dehydration) . 11% bands present today but total white count remains normal. Discussed with Dr. Aguilera-clear liquids being initiated, may require EGD although that would not explain fever even if explain pain. Chest x-ray today; was unremarkable prior to hydration. Respiratory viral panel negative. Renal function is improved significantly with hydration and potassium is improving.
[2017-03-13] MEDS: CETIRIZINE 10 MG TABLET PO SCH (10:04)
[2017-03-13] MEDS: PANTOPRAZOLE 40 MG INJECTION IVP SCH ×2 (10:04→21:06)
[2017-03-13] MEDS: DOXYCYCLINE 100 MG in NS 250ml 250 ML IV SCH ×2 (10:05→21:03)
[2017-03-13] MEDS: ASPIRIN *EC* 81 MG TABLET PO SCH (12:57)
--- NOTE | 2017-03-13 14:49 | Progress Note ---
- Date 03/13/17 Subjective: Rodolfo was seen with his at bedside this am. He continues to have minor dyspnea with moderate exertional dyspnea but no cough or pleuritic pain. He denies chest pain or palpitations, nausea or vomiting. Abdominal pain has improved but he is tolerated little oral intake reported that he is full after having half of popsicle or half of a cup of broth. He denies reflux or heartburn. His nose is stuffy but he denied sore throat. He had fever with chills and sweats overnight and noticed some brief spasms in the left pectoral muscle lasting only a second or 2 several times overnight. He denies difficulty urinating and urine volume has improved. Objective Vital signs: Temperature 99.9 F 03/13/17 08:22 Pulse Rate 112 H 03/13/17 08:22 Respiratory Rate 24 03/13/17 08:22 Blood Pressure 130/69 03/13/17 08:22 Pulse Oximetry 92 RA 03/13/17 08:22 I/O 3403/475 EXAM General-NAD, alert, hard of hearing; MAXIMUM TEMPERATURE 102.3 at 9 PM last night HEENT-conjunctiva clear, sclera anicteric, EOMI, no splinter hemorrhages noted in palpebral conjunctiva; oral membranes clear although somewhat dry Lungs-nonlabored, good airflow, breath sounds clear anteriorly/posteriorly Cardiac-regular rhythm, S1-S2 Abd-obese, soft, minimal tenderness in the epigastrium without guarding or peritoneal signs, bowel sounds present Ext-trace edema Skin-without rash Neuro-MAEW Psych-calm - Height/Weight/BMI: Height 1.78 m Weight 115.4 kg Body Mass Index 35.8 Results - Labs CBC & Chem 7: 03/13/17 04:19 03/13/17 04:19 Labs: S66 B14 L16 M4 AST 123, ALT 107; bilirubin 0.5, alk phosphatase 81; alb 2.6 Microbiology Results: Microbiology 03/11/17 19:51 Peripheral/Iv Start Blood Culture - Preliminary No Growth After 1 Day 03/11/17 19:58 Peripheral/Iv Start Blood Culture - Preliminary No Growth After 1 Day Assessment and Plan (1) Hypotension Current visit: Yes Status: Acute (2) Febrile illness, acute Current visit: Yes Status: Acute Assessment and Plan: Assessment: Hypotension, resolved Severe sepsis Abdominal pain Transaminitis Dehydration, FeNa-0.17% Hypokalemia, POA Febrile illness Anorexia, present to admission CKD, stage III Hypertension Hyperlipidemia Obesity, BMI 36.1 Plan: Continues to have episodic fevers, started on Levaquin/metronidazole for abdominal coverage 03/11 and doxycycline 03/12. Blood cultures 4 negative at present. White count remains normal although increased bands present. Transaminases slightly higher today-acute hepatitis panel negative in the outpatient office recently. AST/ALT were normal in August 2016. Dr. Jackson saw patient today-will discontinue Levaquin/metronidazole but continue doxycycline pending multiple additional studies that are been ordered as outlined in Dr. Jackson note. Imaging does not reveal source for infection, diarrhea today but C. difficile is negative and no other enteric pathogens identified. Evaluation for noninfectious sources of fever initiated; may require temporal artery biopsy. No visual symptoms described. incidentally mention that the patient had surgery on his left upper eyelid in January by Dr. Bunch. Abdominal symptoms improving, discussed with Dr. Aguilera-advanced to full liquids although anticipate little oral intake. Currently on omeprazole and Carafate. Renal function has stabilized. Telemetry (reviewed by myself) with persistent low-grade sinus tachycardia and occasional PVCs; with improvement in blood pressure will resuming metoprolol at 50 mg twice a day. Total calcium decreased but corrects for low albumin. DVT Prophylaxis: SCD's GI Prophylaxis: other Resuscitation Status: Full Code - Physician Narrative Narrative: Date: 03/13/17 Time: 1445 Hospital Course Summary Disclaimer: The visit summary below is not to be considered part of the above Progress Note. Hospital Course: 03/11/17 Damion presents with 1 week anorexia/poor intake of fluids with increasing dizziness and weakness suggesting dehydration. Urine sodium/fractional excretion consistent with dehydration. Hydration initiated overnight in conjunction with potassium replacement; continues to require IV fluids at this time. Abdomen is quite tender especially in the upper abdomen and right upper quadrant. Will image with gallbladder sonogram due to renal insufficiency but CT may be needed. Switch to IV PPI, hold oral antihypertensives. Anticipate surgical consultation due to marked tenderness. Lactic acid/procalcitonin are not elevated. Blood cultures pending. Continue telemetry. Biotic subsequently initiated when patient developed temperature of 103 03/12/17 Maximum temperature 102.2 degrees yesterday evening-empirically started on Levaquin/metronidazole for abdominal coverage. Blood cultures 4 negative of present. Imaging does not reveal source for infection, diarrhea today but C. difficile is negative and no other enteric pathogens identified. Overnight patient met criteria for severe sepsis with fever, tachypnea, tachycardia, and creatinine above baseline (although may be due to dehydration) . 11% bands present today but total white count remains normal. Doxycycline added for atypical infection given elevated transaminases; Dr. Jackson consulted. Discussed with Dr. Aguilera-clear liquids being initiated, may require EGD although that would not explain fever even if explain pain. Chest x-ray today; was unremarkable prior to hydration. Respiratory viral panel negative. Renal function is improved significantly with hydration and potassium is improving. 03/13/17 Continues to have episodic fevers, started on Levaquin/metronidazole for abdominal coverage 03/11 and doxycycline 03/12. Blood cultures 4 negative at present. White count remains normal although increased bands present. Transaminases slightly higher today-acute hepatitis panel negative in the outpatient office recently. AST/ALT were normal in August 2016. Dr. Jackson saw patient today-will discontinue Levaquin/metronidazole but continue doxycycline pending multiple additional studies that are been ordered as outlined in Dr. Jackson note. Imaging does not reveal source for infection, diarrhea today but C. difficile is negative and no other enteric pathogens identified. Evaluation for noninfectious sources of fever initiated; may require temporal artery biopsy. No visual symptoms described. Abdominal symptoms improving, discussed with Dr. Aguilera-advanced to full liquids although anticipate little oral intake. Currently on omeprazole and Carafate. Renal function has stabilized. Telemetry (reviewed by myself) with persistent low-grade sinus tachycardia and occasional PVCs; with improvement in blood pressure will resuming metoprolol at 50 mg twice a day. Total calcium decreased but corrects for low albumin.
--- NOTE | 2017-03-13 18:25 | Progress Note ---
DATE OF SERVICE 03/13/2017 FINDINGS Mr. Fatima was seen earlier this morning on rounds. He states that he was experiencing less abdominal pain. He states he still does not have much of an appetite. PHYSICAL EXAM VITAL SIGNS: T-max 101.6. The patient remains to be tachycardic with a pulse of 114. Blood pressure is stable at 125/75.. HEENT: Normocephalic. Pupils are equally round and react to light and accommodation. CHEST: Clear to auscultation bilaterally. HEART: Regular rate and rhythm. Normal S1 and S2 without gallops, murmurs or clicks. ABDOMEN: Palpation of the abdomen earlier today revealed it to be soft with less tenderness being noted within the epigastric region. There was no evidence for guarding or rebound. LABORATORY/RADIOGRAPHIC EVALUATION The patient's white count remains stable at 6.1. Hemoglobin stable at 11.9. BMP obtained and found to be without marked abnormalities. I did review Infectious Disease consult. Infectious Disease had ordered multiple additional tests for further evaluation of his fever of unknown origin. There was a mention of questioning temporal artery biopsy. ASSESSMENT 71-year-old gentleman with ongoing fever of unknown origin. Patient with history of increased liver function tests. Patient with history of epigastric abdominal pain that seems to be improving on its own behalf with empiric medical therapy for peptic ulcer disease. The patient remains to be without an acute general surgical process. PLAN Given the improvement of his abdominal pain at this time it was my recommendation that we did not need to proceed with esophagogastroduodenoscopy. Will continue to follow along in the patient's care. Continue to perform serial abdominal examinations. KATHERINE
[2017-03-13] MEDS: SIMVASTATIN 40 MG TABLET PO SCH (21:03)
[2017-03-14] MEDS: SUCRALFATE 1 GM TABLET PO SCH ×4 (06:05→20:36)
[2017-03-14] MEDS: NS 1,000 ML IV SCH ×3 (07:15→17:47)
[2017-03-14] MEDS ORDERED: NASONEX PO PRN (09:00)
[2017-03-14] MEDS: ASPIRIN *EC* 81 MG TABLET PO SCH (09:26)
[2017-03-14] MEDS: PANTOPRAZOLE 40 MG INJECTION IVP SCH ×2 (09:26→20:36)
[2017-03-14] MEDS: CETIRIZINE 10 MG TABLET PO SCH (09:26)
[2017-03-14] MEDS: DOXYCYCLINE 100 MG in NS 250ml 250 ML IV SCH ×2 (09:31→20:35)
--- NOTE | 2017-03-14 12:04 | Progress Note ---
- Date 03/14/17 Subjective: F/U: Hypotension, Fever of unknown origin Feels more rough today-weak, tired, achy; was feeling better in general yesterday. Passed several loose stools overnight and this am. Lower ab crampy pain with stools. Not having nausea, but still very little desire/drive to eat. Nothing tastes good. Breathing feels short-not having cough or congestion. No pain with breathing. No chest pressure or palpitation. Some muscle cramps. Weak in general. Urinating well. No sinus congestion or ear congestion. HR decreased with initiation of Metoprolol last night. Objective Vital signs: Temperature 98.9 F 03/14/17 07:16 Pulse Rate 60 03/14/17 08:11 Respiratory Rate 22 03/14/17 07:16 Blood Pressure 112/66 03/14/17 07:16 Pulse Oximetry 94 03/14/17 07:16 Height/Weight/BMI: Height 1.78 m Weight 117.5 kg Body Mass Index 35.8 - Constitutional Present: mild distress, well nourished, well developed, average body habitus, obese, cooperative - Routine HEENT Exam Head: Present: normocephalic, atraumatic Eye: Present: EOMI, PERRL ENT: Present: mucous membranes dry - Routine Respiratory Exam Present: decreased breath sounds. Absent: rales, respiratory distress, rhonchi , stridor, wheezes, crackles - Routine Cardiovascular Exam Present: RRR, no murmur - Routine Abdominal Exam Present: soft, normoactive bowel sounds, non distended, non tender. Absent: guarding - Routine Extremities Exam Present: edema (+1 BLE ). Absent: cyanosis, clubbing Comments: SCD in place - Routine Musculoskeletal Exam Musculoskeletal: Present: no clubbing or cyanosis - Routine Skin Exam Present: dry, warm - Routine Neurological Exam Present: alert, oriented X3, CN II-XII intact, moving all extremities, vision grossly intact, hearing grossly intact, normal speech. Absent: motor deficit - Routine Psychiatric Exam Present: normal affect, normal thought process, cooperative, good insight, good judgment Results - Labs CBC & Chem 7: 03/14/17 04:03 03/14/17 04:03 Microbiology Results: Microbiology 03/11/17 19:58 Peripheral/Iv Start Blood Culture - Preliminary No Growth After 2 Days 03/11/17 19:51 Peripheral/Iv Start Blood Culture - Preliminary No Growth After 2 Days Assessment and Plan (1) Hypotension Current visit: Yes Status: Acute (2) Febrile illness, acute Current visit: Yes Status: Acute Assessment and Plan: Assessment: Hypotension, resolved Dehydration, FeNa-0.17% Severe sepsis suspected - ruled out -- no definitive bacterial pathogens found Febrile illness Abdominal pain Transaminitis Dehydration, FeNa-0.17% Hypokalemia (POA) Anorexia, present on admission CKD, stage III Hypertension Hyperlipidemia Obesity, BMI 36.1 Plan: Will check non contrast CT chest secondary to dyspnea - would avoid contrast at this time due to elevation of creatinine to 1.7 at presentation (improved to 1.3 today). Culturelle 2 tablets TID with meals to help bowel function. Will hold on Metoprolol as HR decreased to 60s. BP stable in the 110 range. BRISEIDA remains on hold. Potassium decreased to 3.4 this am. Will give oral potassium today at noon. Continue doxycycline as recommended by ID. BC negative. Seeing less temperature elevations. Send out serology pending. Continue IVF for hydration due to decreased oral drive. Encourage increasing activities as able to help functional status. Recheck CMP in am to monitor renal and liver status. Check CBC in am due to febrile process. Will repeat CRP in am Case discussed with CM, Dr Aguilera, and patient's . Time spent with patient care 35 minutes. DVT Prophylaxis: SCD's Resuscitation Status: Full Code - Time spent with patient Time with patient PN: 35 minutes - Physician Narrative Physician: Brennon Chatman MD Narrative: Date: 03/14/17 Time: 1200 Hospital Course Summary Disclaimer: The visit summary below is not to be considered part of the above Progress Note. Hospital Course: 03/11/17 Damion presents with 1 week anorexia/poor intake of fluids with increasing dizziness and weakness suggesting dehydration. Urine sodium/fractional excretion consistent with dehydration. Hydration initiated overnight in conjunction with potassium replacement; continues to require IV fluids at this time. Abdomen is quite tender especially in the upper abdomen and right upper quadrant. Will image with gallbladder sonogram due to renal insufficiency but CT may be needed. Switch to IV PPI, hold oral antihypertensives. Anticipate surgical consultation due to marked tenderness. Lactic acid/procalcitonin are not elevated. Blood cultures pending. Continue telemetry. Biotic subsequently initiated when patient developed temperature of 103 03/12/17 Maximum temperature 102.2 degrees yesterday evening-empirically started on Levaquin/metronidazole for abdominal coverage. Blood cultures 4 negative of present. Imaging does not reveal source for infection, diarrhea today but C. difficile is negative and no other enteric pathogens identified. Overnight patient met criteria for severe sepsis with fever, tachypnea, tachycardia, and creatinine above baseline (although may be due to dehydration) . 11% bands present today but total white count remains normal. Doxycycline added for atypical infection given elevated transaminases; Dr. Jackson consulted. Discussed with Dr. Aguilera-clear liquids being initiated, may require EGD although that would not explain fever even if explain pain. Chest x-ray today; was unremarkable prior to hydration. Respiratory viral panel negative. Renal function is improved significantly with hydration and potassium is improving. 03/13/17 Continues to have episodic fevers, started on Levaquin/metronidazole for abdominal coverage 03/11 and doxycycline 03/12. Blood cultures 4 negative at present. White count remains normal although increased bands present. Transaminases slightly higher today-acute hepatitis panel negative in the outpatient office recently. AST/ALT were normal in August 2016. Dr. Jackson saw patient today-will discontinue Levaquin/metronidazole but continue doxycycline pending multiple additional studies that are been ordered as outlined in Dr. Jackson note. Imaging does not reveal source for infection, diarrhea today but C. difficile is negative and no other enteric pathogens identified. Evaluation for noninfectious sources of fever initiated; may require temporal artery biopsy. No visual symptoms described. Abdominal symptoms improving, discussed with Dr. Aguilera-advanced to full liquids although anticipate little oral intake. Currently on omeprazole and Carafate. Renal function has stabilized. Telemetry (reviewed by myself) with persistent low-grade sinus tachycardia and occasional PVCs; with improvement in blood pressure will resuming metoprolol at 50 mg twice a day. Total calcium decreased but corrects for low albumin. 03/14/[address] chest secondary to dyspnea - would avoid contrast at this time due to elevation of creatinine to 1.7 at presentation (improved to 1.3 today). Culturelle 2 tablets TID with meals to help bowel function. Will hold on Metoprolol as HR decreased to 60s. BP stable in the 110 range. BRISEIDA remains on hold. Potassium decreased to 3.4 this am. Will give oral potassium today at noon. Continue doxycycline as recommended by ID. BC negative. Seeing less temperature elevations. Send out serology pending. Continue IVF for hydration due to decreased oral drive. Encourage increasing activities as able to help functional status. Recheck CMP in am to monitor renal and liver status. Check CBC in am due to febrile process. Will repeat CRP in am
[2017-03-14] MEDS: LACTOBACILLUS (15B cfu) CAPSULE PO SCH ×2 (13:10→17:47)
--- NOTE | 2017-03-14 16:03 | CT Scan Report ---
EXAM: CT chest wo con IV contrast COMPARISON: Chest radiograph 03/12/2017, 03/11/2017 CT abdomen pelvis, 03/10/2017 chest radiograph. 03/06/2017 chest radiograph. HISTORY: dyspnea, Febrile process LOCATION OF DICTATION: [facility] [place]. TECHNIQUE: Without IV contrast, helically acquired scans were obtained from the lung apices through the domes of the diaphragms. The study is reviewed in soft tissue, bone and lung windows. The study is reconstructed in thinner axial sections and in coronal reformations. The current CT scan was performed using radiation dose-reduction techniques. FINDINGS: SOFT TISSUES: No axillary or supraclavicular, mediastinal, or hilar lymphadenopathy is identified. The vascular structures appear unremarkable. No significant pericardial effusion is identified. A few coronary artery calcifications are noted. UPPER ABDOMEN: Upper poles of the kidneys, adrenal glands, gallbladder, body and tail of the pancreas, spleen, liver, bowel appear unremarkable. The stomach gray are thickened but may be due to nondistention rather than gastritis. Colonic diverticuli are noted without evidence for acute diverticulitis. CHEST WALL: Unremarkable. BONES: Endplate sclerosis and spurring is noted of the thoracic spine. No evidence for osseous metastasis. LUNGS: There is a trace of a right pleural effusion. There may be some adjacent passive atelectasis at the right posterior sulcus. There may be atelectasis at the left posterior sulcus as well. Mild dependent atelectatic changes are noted. The lungs are otherwise clear. IMPRESSION: 1. There is a trace of a right pleural effusion with adjacent passive atelectasis at the right posterior sulcus. It is uncertain whether there are air bubbles within this pleural collection. 2. No mediastinal or hilar lymphadenopathy. The lungs are otherwise clear. .
[2017-03-14] MEDS: SIMVASTATIN 40 MG TABLET PO SCH (20:36)
[2017-03-15] MEDS: NS 1,000 ML IV SCH ×5 (03:23→20:19)
[2017-03-15] MEDS: SUCRALFATE 1 GM TABLET PO SCH ×4 (05:34→20:26)
[2017-03-15] MEDS: PANTOPRAZOLE 40 MG INJECTION IVP SCH ×2 (08:47→20:25)
[2017-03-15] MEDS: CETIRIZINE 10 MG TABLET PO SCH (08:48)
[2017-03-15] MEDS: SALINE FLUSH 10ml SYRINGE IVF PRN (08:48)
[2017-03-15] MEDS: ASPIRIN *EC* 81 MG TABLET PO SCH (08:48)
[2017-03-15] MEDS: DOXYCYCLINE 100 MG in NS 250ml 250 ML IV SCH (08:48)
[2017-03-15] MEDS: LACTOBACILLUS (15B cfu) CAPSULE PO SCH ×3 (08:48→17:08)
--- NOTE | 2017-03-15 09:35 | ID Progress Note ---
Subjective Date: 03/15/17 Subjective: The patient reports that he is not feeling as well as he was a couple of days ago. He did not realize that his fevers are actually lower. He still feels nauseated with poor appetite and fatigued. He denies any focal pain but does report that he has a history of low back pain that has been intermittent. He has only been eating clear liquids recently. Exam Vital Signs: Temperature 97.8 F 03/15/17 08:46 Pulse Rate 59 L 03/15/17 08:46 Respiratory Rate 22 03/15/17 08:46 Blood Pressure 120/65 03/15/17 08:46 Pulse Oximetry 94 03/15/17 08:46 Height/Weight/BMI: Height 1.78 m Weight 120.2 kg Body Mass Index 35.8 - Constitutional Present: no acute distress, well nourished, well developed - Routine HEENT Exam Head: Present: normocephalic, atraumatic Eye: Present: EOMI, PERRL ENT: Present: mucous membranes moist, oropharynx clear, dentition normal - Routine Neck Exam Present: supple - Routine Respiratory Exam Present: CTA bilaterally - Routine Cardiovascular Exam Present: RRR, no murmur - Routine Abdominal Exam Present: soft, normoactive bowel sounds, non distended, non tender - Routine Extremities Exam Absent: cyanosis, clubbing, edema - Routine Skin Exam Absent: rash - Routine Neurological Exam Present: alert, oriented X3, CN II-XII intact. Absent: motor deficit - Routine Psychiatric Exam Present: normal affect, normal thought process Results - Labs CBC & Chem 7: 03/15/17 04:20 03/15/17 04:20 Labs: ESR was only 15 Microbiology Results: Microbiology 03/11/17 19:58 Peripheral/Iv Start Blood Culture - Preliminary No Growth After 3 Days 03/11/17 19:51 Peripheral/Iv Start Blood Culture - Preliminary No Growth After 3 Days Impression: FUO (fever, chills, night sweats for about 3 weeks) Elevated LFTs Hypotension and dehydration, improved HTN Obesity Dyslipidemia Low back pain Recommendation: Will order Lumbar spine MRI. Will also order tick serologies. Continue doxycycline for now, but would change to po. Discussed advancing his diet with Dr. Chatman. Multiple serologies are still pending. Discussed with the patient and his that the etiology of his fever is unclear. I'm less concerned about PMR/GCA since his sed rate is only 15.
--- NOTE | 2017-03-15 10:10 | Progress Note ---
DATE: 03/14/2017 FINDINGS The patient was seen earlier today on rounds. He states that he is "feeling worse again." He states, however, his abdominal pain has improved. He states he did have a few loose stools last evening. He described his abdominal pain as more crampy in nature. VITALS: Afebrile and normotensive. The patient did become tachycardic yesterday. Current vitals include temperature 98.9, pulse 60, respirations 22, blood pressure 112/66, SaO2 94% on room air. CHEST: Clear to auscultation bilaterally. HEART: Regular rate and rhythm. Normal S1 and S2 without gallops, murmurs or clicks. ABDOMEN: Palpation of the abdomen reveals some minimal tenderness within epigastric region. There was, however, no evidence for guarding or rebound. I did not appreciate any evidence for hepatosplenomegaly or other abnormal masses. LABORATORY/RADIOGRAPH EVALUATION The patient had a CBC today that was unremarkable. White count remains normal at 7.0. A BMP was obtained and found to be without marked abnormalities. Potassium was slightly low at 3.4. Chloride was slightly elevated at 113. ASSESSMENT 71-year-old gentleman with fever of unknown origin and a history of abdominal pain that has the for the most part resolved at this time. PLAN Will go ahead and sign off at this time from a general surgical standpoint. If any further general surgical needs are required, please do not hesitate to re- contact me if needed. KATHERINE
[2017-03-15] MEDS ORDERED: SALINE FLUSH 10ml SYRINGE ONE (14:44)
[2017-03-15] MEDS ORDERED: GADOTERIDOL 279.3mg/ml - 5ml vial IVP ONE (14:45)
--- NOTE | 2017-03-15 16:05 | Progress Note ---
- Date 03/15/17 Subjective: Rodolfo is still feeling miserable - weak, and fatigued. He's still running fevers. He hasn't had much of an appetite. His diarrhea is slightly better. He gets easily winded -- even just standing up to transfer out of the wheelchair and taking a couple steps to his bed made him short of breath. Objective Vital signs: Temperature 98.1 F 03/15/17 15:50 Pulse Rate 112 H 03/15/17 15:50 Respiratory Rate 16 03/15/17 15:50 Blood Pressure 130/73 03/15/17 15:50 Pulse Oximetry 94 03/15/17 15:50 Height/Weight/BMI: Height 1.78 m Weight 120.2 kg Body Mass Index 35.8 - Constitutional Present: no acute distress, well nourished, well developed, obese - Routine HEENT Exam Head: Present: normocephalic ENT: Present: mucous membranes moist - Routine Respiratory Exam Present: CTA bilaterally - Routine Cardiovascular Exam Present: RRR, S1, S2 - Routine Abdominal Exam Present: soft, normoactive bowel sounds, non distended, non tender - Routine Extremities Exam Present: edema (trace to 1+ b/l), pulses intact - Routine Skin Exam Present: intact, dry, warm - Routine Neurological Exam Present: alert, oriented X3, CN II-XII intact, normal speech - Routine Psychiatric Exam Present: normal affect, normal thought process, cooperative Results - Labs CBC & Chem 7: 03/15/17 04:20 03/15/17 16:48 Microbiology Results: Microbiology 03/11/17 19:58 Peripheral/Iv Start Blood Culture - Preliminary No Growth After 3 Days 03/11/17 19:51 Peripheral/Iv Start Blood Culture - Preliminary No Growth After 3 Days Assessment and Plan (1) Hypotension Current visit: Yes Status: Acute (2) Febrile illness, acute Current visit: Yes Status: Acute Assessment and Plan: Assessment: CMV infection Hypotension, resolved Dehydration, FeNa-0.17% Severe sepsis suspected - ruled out -- no definitive bacterial pathogens found Febrile illness Abdominal pain Transaminitis Dehydration, FeNa-0.17% Hypokalemia (POA) Anorexia, present on admission CKD, stage III Hypertension Hyperlipidemia Obesity, BMI 36.1 Plan: CMV IgG and IgM both positive (IgM pos and IgG neg would suggest a past infection) - diagnosis reviewed, treatment is supportive. d/w Dr. Jackson - dc alysa ( states it's been causing diarrhea). Multiple other serologies still pending though CMV would explain sx and transaminitis. MRI back pending. K 3.4 - additional replacement ordered. BP stable but HR varies btwn 58-117. Decrease rate of IVF to [address]: trace of a right pleural effusion with adjacent passive atelectasis at the right posterior sulcus. No mediastinal or hilar lymphadenopathy. The lungs are otherwise clear. Consult PT/OT D/W Dr. Jackson and Dr. Chatman. Pt info from [facility] on CMV was provided to pt 's . DVT Prophylaxis: SCD's Resuscitation Status: Full Code - Time spent with patient Time with patient PN: 25 minutes - Physician Narrative Physician: Brennon Chatman MD Narrative: Date: 03/15/17 Time: 1939 Have independently interviewed and examined pt. Chart reviewed. Case discussed with Dr Jackson and my ONSITE CASE MANAGER. Care plan developed with my supervision; agree with above. Stools starting to form. Still, very little appetite. No nausea, just not hungry and fills up readily. Breathing about the same-winds with activities. Weak and tired in general Lung: decreased, shallow breathing. CV: tach, regular. AB: soft obese nt EXT: +2 BLE MSE: awake alert appropriate Plan: Will stop doxycycline due to viral source of febrile process. Decrease IVF to 50cc/hr. Restart Lopressor at 25mg at night. PT/OT to help functional status. Recheck CMP and Mg in am. Hospital Course Summary Disclaimer: The visit summary below is not to be considered part of the above Progress Note. Hospital Course: 03/11/17 Damion presents with 1 week anorexia/poor intake of fluids with increasing dizziness and weakness suggesting dehydration. Urine sodium/fractional excretion consistent with dehydration. Hydration initiated overnight in conjunction with potassium replacement; continues to require IV fluids at this time. Abdomen is quite tender especially in the upper abdomen and right upper quadrant. Will image with gallbladder sonogram due to renal insufficiency but CT may be needed. Switch to IV PPI, hold oral antihypertensives. Anticipate surgical consultation due to marked tenderness. Lactic acid/procalcitonin are not elevated. Blood cultures pending. Continue telemetry. Biotic subsequently initiated when patient developed temperature of 103 03/12/17 Maximum temperature 102.2 degrees yesterday evening-empirically started on Levaquin/metronidazole for abdominal coverage. Blood cultures 4 negative of present. Imaging does not reveal source for infection, diarrhea today but C. difficile is negative and no other enteric pathogens identified. Overnight patient met criteria for severe sepsis with fever, tachypnea, tachycardia, and creatinine above baseline (although may be due to dehydration) . 11% bands present today but total white count remains normal. Doxycycline added for atypical infection given elevated transaminases; Dr. Jackson consulted. Discussed with Dr. Aguilera-clear liquids being initiated, may require EGD although that would not explain fever even if explain pain. Chest x-ray today; was unremarkable prior to hydration. Respiratory viral panel negative. Renal function is improved significantly with hydration and potassium is improving. 03/13/17 Continues to have episodic fevers, started on Levaquin/metronidazole for abdominal coverage 03/11 and doxycycline 03/12. Blood cultures 4 negative at present. White count remains normal although increased bands present. Transaminases slightly higher today-acute hepatitis panel negative in the outpatient office recently. AST/ALT were normal in August 2016. Dr. Jackson saw patient today-will discontinue Levaquin/metronidazole but continue doxycycline pending multiple additional studies that are been ordered as outlined in Dr. Jackson note. Imaging does not reveal source for infection, diarrhea today but C. difficile is negative and no other enteric pathogens identified. Evaluation for noninfectious sources of fever initiated; may require temporal artery biopsy. No visual symptoms described. Abdominal symptoms improving, discussed with Dr. Aguilera-advanced to full liquids although anticipate little oral intake. Currently on omeprazole and Carafate. Renal function has stabilized. Telemetry (reviewed by myself) with persistent low-grade sinus tachycardia and occasional PVCs; with improvement in blood pressure will resuming metoprolol at 50 mg twice a day. Total calcium decreased but corrects for low albumin. 03/14/16 Will check non contrast CT chest secondary to dyspnea - would avoid contrast at this time due to elevation of creatinine to 1.7 at presentation (improved to 1.3 today). Culturelle 2 tablets TID with meals to help bowel function. Will hold on Metoprolol as HR decreased to 60s. BP stable in the 110 range. BRISEIDA remains on hold. Potassium decreased to 3.4 this am. Will give oral potassium today at noon. Continue doxycycline as recommended by ID. BC negative. Seeing less temperature elevations. Send out serology pending. Continue IVF for hydration due to decreased oral drive. Encourage increasing activities as able to help functional status. Recheck CMP in am to monitor renal and liver status. Check CBC in am due to febrile process. Will repeat CRP in am 03/15/16 CMV IgG and IgM both positive (IgM pos and IgG neg would suggest a past infection) - diagnosis reviewed, treatment is supportive. d/w Dr. Jackson - liset watt ( states it's been causing diarrhea). Multiple other serologies still pending though CMV would explain sx and transaminitis. MRI back pending. K 3.4 - additional replacement ordered. BP stable but HR varies btwn 58-117. Decrease rate of IVF to [address]: trace of a right pleural effusion with adjacent passive atelectasis at the right posterior sulcus. No mediastinal or hilar lymphadenopathy. The lungs are otherwise clear. Consult PT/OT
--- NOTE | 2017-03-15 16:24 | Magnetic Resonance Report ---
EXAMINATION: MR lumbar spine wo/w con DATE: 03/15/2017 11:04 AM ENCOUNTER: Initial INDICATION: fever, back pain COMPARISON: Abdominal CT 03/11/2017 TECHNIQUE: Multi-planar multi-weighted magnetic resonance imaging of the lumbar spine was performed with and without intravenous contrast using the standard lumbar spine protocol. CONTRAST: 26 mL ProHance FINDINGS: Evaluation limited by artifact resulting in decreased signal intensity of water on the fluid sensitive sequences. No acute fracture. Lordosis of the lumbar spine is maintained. No significant spondylolisthesis. No marrow replacing process. Mild degenerative disc desiccation at L5-S1. No significant disc space height loss. Mild disc bulging and facet arthropathy resulting in prominently mild multilevel neural foraminal narrowing and spinal canal stenosis. No severe spinal canal stenosis appreciated allowing for suboptimal signal intensity on the fluid sensitive sequences. The conus terminates at T12. No clumping of intrathecal nerve roots. No abnormal foci of enhancement. Limited views of the abdomen and pelvis are unremarkable. IMPRESSION: 1. No evidence of discitis/osteomyelitis or other acute abnormality of the lumbar spine. 2. Mild degenerative spondylosis. .
[2017-03-15] MEDS ORDERED: NS 1,000 ML IV SCH (20:00)
[2017-03-15] MEDS: SIMVASTATIN 40 MG TABLET PO SCH (20:26)
[2017-03-15] MEDS: ACETAMINOPHEN 325 MG TABLET PO PRN (21:21)
[2017-03-16] MEDS: SUCRALFATE 1 GM TABLET PO SCH ×4 (06:06→20:47)
[2017-03-16] MEDS: LACTOBACILLUS (15B cfu) CAPSULE PO SCH ×3 (09:13→17:29)
[2017-03-16] MEDS: PANTOPRAZOLE 40 MG INJECTION IVP SCH (09:13)
[2017-03-16] MEDS: CETIRIZINE 10 MG TABLET PO SCH (09:13)
[2017-03-16] MEDS: ASPIRIN *EC* 81 MG TABLET PO SCH (09:13)
[2017-03-16] MEDS ORDERED: FUROSEMIDE 20 MG/2 ML INJECTION IVP ONE (11:53)
--- NOTE | 2017-03-16 12:06 | Progress Note ---
- Date 03/16/17 Subjective: Rodolfo is seen today in follow up. He reports feeling fairly well. Denies fevers overnoc. He appears tachypneic,and agrees that he is a bit SOA. Reports his O2 sats have been fine. He does have notable edema in the right LE, and states he has been struggling with edema more for the last year or so. He has not been evaluated for HF or other concerns, but is concerned about that. No pain in the leg. No chest pain. No severe or persistent cough. Objective Vital signs: Temperature 96.6 F L 03/16/17 08:00 Pulse Rate 105 H 03/16/17 08:00 Respiratory Rate 24 03/16/17 08:00 Blood Pressure 130/77 03/16/17 08:00 Pulse Oximetry 94 03/16/17 08:00 Height/Weight/BMI: Height 1.78 m Weight 120.1 kg Body Mass Index 35.8 - Constitutional Present: mild distress, obese, cooperative - Routine HEENT Exam Head: Present: normocephalic, atraumatic Eye: Present: EOMI, PERRL, normal accommodation ENT: Present: mucous membranes moist - Routine Respiratory Exam Present: dyspnea, decreased breath sounds, diminished air movement. Absent: rales, rhonchi, crackles - Routine Cardiovascular Exam Present: RRR, S1, S2, no murmur, tachycardia - Routine Abdominal Exam Present: soft, normoactive bowel sounds, non distended, non tender - Routine Extremities Exam Present: edema (Right LE, pitting edema to knee. Left LE, no edema), non tender. Absent: calf tenderness, Ml's sign - Routine Musculoskeletal Exam Musculoskeletal: Present: normal strength, moving extremities well - Routine Skin Exam Present: intact, dry, warm - Routine Neurological Exam Present: alert, oriented X3, moving all extremities - Routine Psychiatric Exam Present: normal affect, suicidal ideation, cooperative Results - Labs CBC & Chem 7: 03/15/17 04:20 03/16/17 04:05 Microbiology Results: Microbiology 03/11/17 19:51 Peripheral/Iv Start Blood Culture - Preliminary No Growth After 4 Days 03/11/17 19:58 Peripheral/Iv Start Blood Culture - Preliminary No Growth After 4 Days - ECG Data Tracing #1 I reviewed this ECG and interpreted as documented below: ECG normal with no acute: arrhythmias, ischemia, conduction abnormalities, chamber hypertrophy Assessment and Plan (1) Hypotension Current visit: Yes Status: Acute (2) Febrile illness, acute Current visit: Yes Status: Acute Assessment and Plan: Assessment: CMV infection Hypotension, resolved Dehydration, FeNa-0.17% Severe sepsis suspected - ruled out -- no definitive bacterial pathogens found Febrile illness Abdominal pain Transaminitis Dehydration, FeNa-0.17% Hypokalemia (POA) Anorexia, present on admission CKD, stage III Hypertension Hyperlipidemia Obesity, BMI 36.1 Tachycardia Fluid overload Right LE edema Plan: 03/16/17 Patient is slowly improving. Concerned with tachypnea. Will assess CXR. Stop IVF. Diurese with Lasix and order routine replacement. Weight is up about 15 pounds since admission. He reports some ongoing edema, but now worse. Will order an echo, and also a RLE US, doppler to R/O PE. No lovenox due to thrombocytopenia. Still with some transaminitis-repeat CMP in AM. He has been tolerating lower dose of metoprolol- increase to BID for HR control. Continue telemetry for HR monitoring. Continue supportive care for CMV. Wells Criteria for DVT: 3 (high risk) Wells Criteria for PE: 6 (moderate). If venous doppler is +, will need to check for PE. Compa Patient does not have thrombocytopenia. Will start Lovenox as SCD are not being utilized. Change Protonix from IV BID to oral once a day. Can advance diet to regular. Nursing to ambulate QID to help strength. DVT Prophylaxis: SCD's GI Prophylaxis: Protonix Resuscitation Status: Full Code - Time spent with patient Time with patient PN: 25 minutes - Physician Narrative Physician: Brennon Chatman MD Narrative: Date: 03/16/17 Time: 1405 Have independently interviewed and examined pt. Chart reviewed. Case discussed with my PRICING MANAGER. Care plan developed with my supervision; agree with above. Appetite with gradual improvements-tolerating full liquids. No nausea, just not hungry. Stools with more and more form. BP improved. Strength decreased. Lungs: decreased, no crackles or wheezes. CV: regular AB: soft obese nt/nd MSE: awake alert Plan: Will change Protonix to po. Nursing to ambulate QID to help strength. Lovenox for DVT prevention as SCD not being utilized. Hold simvastatin due to elevated LFT. BP improving, but would not restart home BRISEIDA at this time. Advance diet to regular. Hospital Course Summary Disclaimer: The visit summary below is not to be considered part of the above Progress Note. Hospital Course: 03/11/17 Damion presents with 1 week anorexia/poor intake of fluids with increasing dizziness and weakness suggesting dehydration. Urine sodium/fractional excretion consistent with dehydration. Hydration initiated overnight in conjunction with potassium replacement; continues to require IV fluids at this time. Abdomen is quite tender especially in the upper abdomen and right upper quadrant. Will image with gallbladder sonogram due to renal insufficiency but CT may be needed. Switch to IV PPI, hold oral antihypertensives. Anticipate surgical consultation due to marked tenderness. Lactic acid/procalcitonin are not elevated. Blood cultures pending. Continue telemetry. Biotic subsequently initiated when patient developed temperature of 103 03/12/17 Maximum temperature 102.2 degrees yesterday evening-empirically started on Levaquin/metronidazole for abdominal coverage. Blood cultures 4 negative of present. Imaging does not reveal source for infection, diarrhea today but C. difficile is negative and no other enteric pathogens identified. Overnight patient met criteria for severe sepsis with fever, tachypnea, tachycardia, and creatinine above baseline (although may be due to dehydration) . 11% bands present today but total white count remains normal. Doxycycline added for atypical infection given elevated transaminases; Dr. Jackson consulted. Discussed with Dr. Aguilera-clear liquids being initiated, may require EGD although that would not explain fever even if explain pain. Chest x-ray today; was unremarkable prior to hydration. Respiratory viral panel negative. Renal function is improved significantly with hydration and potassium is improving. 03/13/17 Continues to have episodic fevers, started on Levaquin/metronidazole for abdominal coverage 03/11 and doxycycline 03/12. Blood cultures 4 negative at present. White count remains normal although increased bands present. Transaminases slightly higher today-acute hepatitis panel negative in the outpatient office recently. AST/ALT were normal in August 2016. Dr. Jackson saw patient today-will discontinue Levaquin/metronidazole but continue doxycycline pending multiple additional studies that are been ordered as outlined in Dr. Jackson note. Imaging does not reveal source for infection, diarrhea today but C. difficile is negative and no other enteric pathogens identified. Evaluation for noninfectious sources of fever initiated; may require temporal artery biopsy. No visual symptoms described. Abdominal symptoms improving, discussed with Dr. Aguilera-advanced to full liquids although anticipate little oral intake. Currently on omeprazole and Carafate. Renal function has stabilized. Telemetry (reviewed by myself) with persistent low-grade sinus tachycardia and occasional PVCs; with improvement in blood pressure will resuming metoprolol at 50 mg twice a day. Total calcium decreased but corrects for low albumin. 03/14/16 [address] check non contrast CT chest secondary to dyspnea - would avoid contrast at this time due to elevation of creatinine to 1.7 at presentation (improved to 1.3 today). Culturelle 2 tablets TID with meals to help bowel function. Will hold on Metoprolol as HR decreased to 60s. BP stable in the 110 range. BRISEIDA remains on hold. Potassium decreased to 3.4 this am. Will give oral potassium today at noon. Continue doxycycline as recommended by ID. BC negative. Seeing less temperature elevations. Send out serology pending. Continue IVF for hydration due to decreased oral drive. Encourage increasing activities as able to help functional status. Recheck CMP in am to monitor renal and liver status. Check CBC in am due to febrile process. Will repeat CRP in am 03/15/16 CMV IgG and IgM both positive (IgM pos and IgG neg would suggest a past infection) - diagnosis reviewed, treatment is supportive. d/w Dr. Jackson - dc alysa ( states it's been causing diarrhea). Multiple other serologies still pending though CMV would explain sx and transaminitis. MRI back pending. K 3.4 - additional replacement ordered. BP stable but HR varies btwn 58-117. Decrease rate of IVF to [address]: trace of a right pleural effusion with adjacent passive atelectasis at the right posterior sulcus. No mediastinal or hilar lymphadenopathy. The lungs are otherwise clear. Consult PT/OT 03/16/17 Patient is slowly improving. Concerned with tachypnea. Will assess CXR. Stop IVF. Diurese with Lasix and order routine replacement. Weight is up about 15 pounds since admission. He reports some ongoing edema, but now worse. Will order an echo, and also a RLE US, doppler to R/O PE. Still with some transaminitis-repeat CMP in AM. He has been tolerating lower dose of metoprolol- increase to BID for HR control. Continue telemetry for HR monitoring. Will start Lovenox as SCD are not being utilized. Continue supportive care for CMV. Change Protonix from IV BID to oral once a day. Can advance diet to regular. Nursing to ambulate QID to help strength. Wells Criteria for DVT: 3 (high risk) Wells Criteria for PE: 6 (moderate). If venous doppler is +, will need to check for PE.
[2017-03-16] MEDS ORDERED: ENOXAPARIN 40 MG/0.4 ML INJECTION SQ SCH (13:45)
[2017-03-16] MEDS ORDERED: ENOXAPARIN 150 MG/ML INJECTION SQ ONE (16:58)
[2017-03-16] MEDS: FUROSEMIDE 20 MG TABLET PO SCH (17:29)
[2017-03-17] MEDS: PANTOPRAZOLE 40 MG TABLET PO SCH (06:17)
[2017-03-17] MEDS: SUCRALFATE 1 GM TABLET PO SCH ×4 (06:17→21:46)
--- NOTE | 2017-03-17 07:20 | Ultrasound Report ---
EXAM: US venous doppler LE RT DATE: 03/16/2017 12:00 AM ENCOUNTER: Initial INDICATION: Edema, unilateral COMPARISON: None available. TECHNIQUE: Ann scale, Doppler, and color duplex examination of the right lower extremity venous system was performed. FINDINGS: All visualized segments of the common femoral, superficial femoral, and popliteal veins are patent with good compressibility and augmentation. Noncompressibility and intraluminal thrombus within the proximal greater saphenous vein. Additional thrombus noted within the proximal anterior tibial vein within the calf. The posterior tibial vein appeared patent. IMPRESSION: 1. Deep venous thrombosis within the proximal anterior tibial vein within the calf. 2. Superficial thrombophlebitis within the proximal greater saphenous vein. The above report concurs with the preliminary report provided by [facility] at 1:44 PM. .
[2017-03-17] MEDS: LACTOBACILLUS (15B cfu) CAPSULE PO SCH ×3 (08:55→17:43)
[2017-03-17] MEDS: FUROSEMIDE 20 MG TABLET PO SCH ×2 (08:55→17:43)
[2017-03-17] MEDS: CETIRIZINE 10 MG TABLET PO SCH (08:55)
[2017-03-17] MEDS: ASPIRIN *EC* 81 MG TABLET PO SCH (08:56)
--- NOTE | 2017-03-17 11:25 | Progress Note ---
- Date 03/17/17 Subjective: Overall, Rodolfo is about the same today. He's still short of breath and is more tachypneic today compared to when I last examined him 2 days ago. At that time, he became short of breath with light activity but recovered in a couple minutes of rest. He feels weak and fatigued. He is still having some diarrhea and his appetite hasn't returned yet. He denies chest pain/tightness. We had discussions on anticoagulation and further testing ie CTA for PE -- he opted for Xarelto and would like to proceed with CTA (understands the risk of radiation and potential problems with kidney function). Objective Vital signs: Temperature 98.0 F 03/17/17 07:47 Pulse Rate 111 H 03/17/17 08:00 Respiratory Rate 22 03/17/17 07:47 Blood Pressure 121/84 03/17/17 07:47 Pulse Oximetry 94 03/17/17 07:47 Height/Weight/BMI: Height 1.78 m Weight 119.3 kg Body Mass Index 35.8 - Constitutional Present: mild distress (dyspneic and tachypneic), well nourished, well developed , obese - Routine HEENT Exam Head: Present: normocephalic Eye: Absent: conjunctival icterus, scleral injection Comments: tongue has dark-brown coating on it - Routine Respiratory Exam Comments: lung sounds are diminished with occasional wheezing - Routine Cardiovascular Exam Present: RRR, S1, S2, tachycardia - Routine Abdominal Exam Present: soft, normoactive bowel sounds, non distended, non tender - Routine Extremities Exam Present: edema (trace on left and 1-2 on right), pulses intact. Absent: calf tenderness - Routine Back/Spine/Pelvis Exam Back/Spine: Present: full ROM - Routine Musculoskeletal Exam Musculoskeletal: Present: no clubbing or cyanosis, moving extremities well - Routine Skin Exam Present: intact, dry, warm - Routine Neurological Exam Present: alert, oriented X3, normal speech - Routine Psychiatric Exam Present: normal affect, normal thought process, cooperative Results - Labs CBC & Chem 7: 03/17/17 05:19 03/17/17 05:19 Microbiology Results: Microbiology 03/11/17 19:51 Peripheral/Iv Start Blood Culture - Final No Growth After 5 Days 03/11/17 19:58 Peripheral/Iv Start Blood Culture - Final No Growth After 5 Days Assessment and Plan (1) Hypotension Current visit: Yes Status: Resolved (2) Febrile illness, acute Current visit: Yes Status: Acute Assessment and Plan: Assessment: CMV and EBV infections DVT RLE Hypotension, resolved Dehydration, FeNa-0.17% Severe sepsis suspected - ruled out -- no definitive bacterial pathogens found Febrile illness Abdominal pain Transaminitis Dehydration, FeNa-0.17% Hypokalemia (POA) Anorexia, present on admission CKD, stage III Hypertension Hyperlipidemia Obesity, BMI 36.1 Tachycardia Fluid overload Plan: 03/17/17 Increasing dyspnea and tachypnea, raising concern for PE. Discussed risks/ benefits of CT scan including radiation exposure and nephrotoxicity, but also opportunity to see PE with any associated complications and other lung pathology. Pt understands risks/benefits and wishes to proceed with scan. Will give NS [address] We also discussed risks/benefits of anticoagulation and reviewed specific characteristics of Coumadin vs. Xarelto. He would like to take Xarelto for anticoagulation but we will need to ensure his insurance will cover Rx (per CM on Saturday). I encouraged activity/ambulation to work on strength and stamina. We reviewed the symptoms of CMV and EBV, and treatment, which is supportive. He' s had symptoms for 3 weeks, and typical course of illness is 2-4 weeks. He is not immunocompromised (malignancy or HIV) so antiviral medications are not recommended and have lacked clear clinical benefit. Continue with diuresis, but as mentioned we are giving some IVF for renal protection. Echo pending. K low normal (3.6) - will give extra dose of KDur today. LFTs are trending down. Discussed with family, RN, and with Dr. Chatman. Time spent in room: 30 min. Compa Assessment: as above with PE - Right lower lobe segmental pulmonary arterial thromboembolus DVT Prophylaxis: Xarelto Resuscitation Status: Full Code - Time spent with patient Time with patient PN: 30 minutes Coordination of Care: >50% of visit spent providing counseling/coordination of care - Physician Narrative Physician: Brennon Chatman MD Narrative: Date: 03/17/17 Time: 1700 Have independently interviewed and examined pt. Chart reviewed. Case discussed with Family and my [employer]. Care plan developed with my supervision; agree with above. Oral drive variable-did have episode of urgent stool post breakfast. Not having nausea or ab pain, but feels more full to abdomen. Reports occasional cough. Still winds with activities. Had fever this afternoon. Moving in general is very taxing. Lungs: decreased, no distress on RA, shallow breathing. CV: tachy, regular AB : soft obese nt/nd MSE: awake alert Plan: Increase metoprolol to 50mg bid for BP and HR control. Discussed about DVT /PE treatment with patient and family. Will start Xarelto and check cost. Encourage oral intake. Continue with therapy to improve functional status. Recheck BMP in am secondary to CT dye. Hospital Course Summary Disclaimer: The visit summary below is not to be considered part of the above Progress Note. Hospital Course: 03/11/17 Damion presents with 1 week anorexia/poor intake of fluids with increasing dizziness and weakness suggesting dehydration. Urine sodium/fractional excretion consistent with dehydration. Hydration initiated overnight in conjunction with potassium replacement; continues to require IV fluids at this time. Abdomen is quite tender especially in the upper abdomen and right upper quadrant. Will image with gallbladder sonogram due to renal insufficiency but CT may be needed. Switch to IV PPI, hold oral antihypertensives. Anticipate surgical consultation due to marked tenderness. Lactic acid/procalcitonin are not elevated. Blood cultures pending. Continue telemetry. Biotic subsequently initiated when patient developed temperature of 103 03/12/17 Maximum temperature 102.2 degrees yesterday evening-empirically started on Levaquin/metronidazole for abdominal coverage. Blood cultures 4 negative of present. Imaging does not reveal source for infection, diarrhea today but C. difficile is negative and no other enteric pathogens identified. Overnight patient met criteria for severe sepsis with fever, tachypnea, tachycardia, and creatinine above baseline (although may be due to dehydration) . 11% bands present today but total white count remains normal. Doxycycline added for atypical infection given elevated transaminases; Dr. Jackson consulted. Discussed with Dr. Aguilera-clear liquids being initiated, may require EGD although that would not explain fever even if explain pain. Chest x-ray today; was unremarkable prior to hydration. Respiratory viral panel negative. Renal function is improved significantly with hydration and potassium is improving. 03/13/17 Continues to have episodic fevers, started on Levaquin/metronidazole for abdominal coverage 03/11 and doxycycline 03/12. Blood cultures 4 negative at present. White count remains normal although increased bands present. Transaminases slightly higher today-acute hepatitis panel negative in the outpatient office recently. AST/ALT were normal in August 2016. Dr. Jackson saw patient today-will discontinue Levaquin/metronidazole but continue doxycycline pending multiple additional studies that are been ordered as outlined in Dr. Jackson note. Imaging does not reveal source for infection, diarrhea today but C. difficile is negative and no other enteric pathogens identified. Evaluation for noninfectious sources of fever initiated; may require temporal artery biopsy. No visual symptoms described. Abdominal symptoms improving, discussed with Dr. Aguilera-advanced to full liquids although anticipate little oral intake. Currently on omeprazole and Carafate. Renal function has stabilized. Telemetry (reviewed by myself) with persistent low-grade sinus tachycardia and occasional PVCs; with improvement in blood pressure will resuming metoprolol at 50 mg twice a day. Total calcium decreased but corrects for low albumin. 03/14/[address] CT chest secondary to dyspnea - would avoid contrast at this time due to elevation of creatinine to 1.7 at presentation (improved to 1.3 today). Culturelle 2 tablets TID with meals to help bowel function. Will hold on Metoprolol as HR decreased to 60s. BP stable in the 110 range. BRISEIDA remains on hold. Potassium decreased to 3.4 this am. Will give oral potassium today at noon. Continue doxycycline as recommended by ID. BC negative. Seeing less temperature elevations. Send out serology pending. Continue IVF for hydration due to decreased oral drive. Encourage increasing activities as able to help functional status. Recheck CMP in am to monitor renal and liver status. Check CBC in am due to febrile process. Will repeat CRP in am 03/15/16 CMV IgG and IgM both positive (IgM pos and IgG neg would suggest a past infection) - diagnosis reviewed, treatment is supportive. d/w Dr. Jackson - dc doxy ( states it's been causing diarrhea). Multiple other serologies still pending though CMV would explain sx and transaminitis. MRI back pending. K 3.4 - additional replacement ordered. BP stable but HR varies btwn 58-117. Decrease rate of IVF to [address]: trace of a right pleural effusion with adjacent passive atelectasis at the right posterior sulcus. No mediastinal or hilar lymphadenopathy. The lungs are otherwise clear. Consult PT/OT 03/16/17 Patient is slowly improving. Concerned with tachypnea. Will assess CXR. Stop IVF. Diurese with Lasix and order routine replacement. Weight is up about 15 pounds since admission. He reports some ongoing edema, but now worse. Will order an echo, and also a RLE US, doppler. +DVT RLE Will start Lovenox as SCD are not being utilized. He has been tolerating lower dose of metoprolol- increase to BID for HR control. Change Protonix from IV BID to oral once a day. Can advance diet to regular. Nursing to ambulate QID to help strength. 03/17/17 Increasing dyspnea and tachypnea, raising concern for PE. Discussed risks/ benefits of CT scan including radiation exposure and nephrotoxicity, but also opportunity to see PE with any associated complications and other lung pathology. Pt understands risks/benefits and wishes to proceed with scan. Will give NS [address] We also discussed risks/benefits of anticoagulation and reviewed specific characteristics of Coumadin vs. Xarelto. He would like to take Xarelto for anticoagulation but we will need to ensure his insurance will cover Rx (per CM on Saturday). I encouraged activity/ambulation to work on strength and stamina. We reviewed the symptoms of CMV and EBV, and treatment, which is supportive. He' s had symptoms for 3 weeks, and typical course of illness is 2-4 weeks. He is not immunocompromised (malignancy or HIV) so antiviral medications are not recommended and have lacked clear clinical benefit. Continue with diuresis, but as mentioned we are giving some IVF for renal protection. Echo pending. K low normal (3.6) - will give extra dose of KDur today. LFTs are trending down.
[2017-03-17] MEDS ORDERED: IOHEXOL 350mg/ml 75ml INJECTION ONE (11:33)
[2017-03-17] MEDS ORDERED: SALINE FLUSH 10ml SYRINGE ONE ×2 (11:33→11:52)
[2017-03-17] MEDS: SALINE FLUSH 10ml SYRINGE IVF PRN (12:05)
[2017-03-17] MEDS ORDERED: ENOXAPARIN 100 MG/ML INJECTION SQ SCH (16:00)
--- NOTE | 2017-03-17 16:20 | XRay Report ---
Indication: SOA Procedure: XR chest 2V: Encounter: Initial Comparison: Subsequent pulmonary CT angiogram of the same day, chest CT 03/14/2017, chest radiographs 03/12/2017 Technique: PA and lateral radiographs of the chest were obtained. Findings: Lungs and airways: Low lung volumes. Basilar airspace opacities. Normal pulmonary vasculature. Pleura: Small right pleural effusion. No pneumothorax. Heart and mediastinum: The cardiomediastinal silhouette and great vessels are within normal limits. Osseous structures and soft tissues: No acute osseous abnormality is seen. Impression: Low lung volumes and small right pleural effusion with basilar airspace opacities suggestive of atelectasis. .
--- NOTE | 2017-03-17 16:57 | CT Scan Report ---
EXAM: CT angio pulm emboli DATE: 03/17/2017 11:19 AM ENCOUNTER: Initial INDICATION: +DVT ?PE COMPARISON: Chest radiographs of the same day, left lower extremity venous ultrasound of the previous day, chest CT 03/14/2017 TECHNIQUE: Following the uneventful administration of a bolus of 72.3 ml Omnipaque 350 intravenous contrast, thin section axial CT images were obtained through the chest using the pulmonary embolus protocol. Coronal, sagittal, and MIP reformatted images were also obtained. The current CT scan was performed using radiation dose-reduction techniques. FINDINGS: Pulmonary Arteries: Central pulmonary arterial filling defects seen within the right lower lobe segmental branch on axial images 165-204. No pulmonary hypertension or right ventricular strain. Heart and Mediastinum: The heart is normal in size without significant pericardial effusion. Coronary arterial and thoracic aortic atherosclerotic calcifications. The great vessels of the thorax are otherwise within normal limits. The visualized portions of the thyroid gland are of normal size and attenuation. No axillary or supraclavicular lymphadenopathy. No mediastinal, hilar or retrocrural lymphadenopathy. Lungs and Airways: Mild right greater than left lower lobe atelectasis. Slightly more confluent consolidation within the right lower lobe in the region of the pulmonary embolus which could represent developing pulmonary infarct. No pulmonary nodule or mass. No endoluminal lesion. Pleura: Small right and trace left pleural effusions. No pneumothorax. Abdomen: The visualized upper abdominal organs are unremarkable. Bones and soft tissues: Degenerative disc disease of the thoracic spine. The skeletal structures and soft tissues of the chest wall are otherwise within normal limits. IMPRESSION: 1. Right lower lobe segmental pulmonary arterial thromboembolus, with overall small clot burden. 2. Right lower lobe airspace consolidation near the embolus raising consideration for developing pulmonary infarct. 3. Small right and trace left pleural effusions with associated mild bilateral lower lobe atelectasis The above report concurs with the preliminary report provided by [facility] at 12:10 PM. .
[2017-03-17] MEDS: RIVAROXABAN 15 MG TABLET PO SCH (17:43)
[2017-03-18] MEDS: SUCRALFATE 1 GM TABLET PO SCH ×4 (06:53→20:09)
[2017-03-18] MEDS: SALINE FLUSH 10ml SYRINGE IVF PRN ×3 (06:53→20:12)
[2017-03-18] MEDS: PANTOPRAZOLE 40 MG TABLET PO SCH (06:53)
[2017-03-18] MEDS: LACTOBACILLUS (15B cfu) CAPSULE PO SCH ×3 (08:59→18:15)
[2017-03-18] MEDS: FUROSEMIDE 20 MG TABLET PO SCH (09:00)
[2017-03-18] MEDS: CETIRIZINE 10 MG TABLET PO SCH (09:00)
[2017-03-18] MEDS: RIVAROXABAN 15 MG TABLET PO SCH ×2 (09:00→18:21)
--- NOTE | 2017-03-18 09:00 | ID Progress Note ---
Subjective Date: 03/18/17 Subjective: Mr. Fatima reports that he is feeling a little bit better. He was found to have a right lower extremity DVT and a small PE over the weekend. He is somewhat reluctant to acknowledge that his fever is better however per records it is. He still has poor appetite. He still reports significant fatigue and shortness of breath with any activity. Exam Vital Signs: Temperature 97.7 F 03/18/17 07:18 Pulse Rate 103 H 03/18/17 08:00 Respiratory Rate 36 H 03/18/17 07:18 Blood Pressure 130/74 03/18/17 07:18 Pulse Oximetry 93 03/18/17 07:18 Height/Weight/BMI: Height 1.78 m Weight 118.8 kg Body Mass Index 35.8 - Constitutional Present: no acute distress, well nourished, well developed - Routine HEENT Exam Head: Present: normocephalic, atraumatic Eye: Present: EOMI, PERRL ENT: Present: mucous membranes moist, oropharynx clear, dentition normal - Routine Neck Exam Present: supple - Routine Respiratory Exam Present: CTA bilaterally - Routine Cardiovascular Exam Present: RRR - Routine Abdominal Exam Present: soft, normoactive bowel sounds, non distended, non tender - Routine Extremities Exam Present: edema (LEs, 1+). Absent: cyanosis, clubbing - Routine Skin Exam Present: intact. Absent: cyanosis, erythema - Routine Neurological Exam Present: alert, oriented X3, CN II-XII intact. Absent: motor deficit - Routine Psychiatric Exam Present: normal affect Results - Labs CBC & Chem 7: 03/17/17 05:19 03/18/17 04:27 Labs: Laboratory Tests 03/13/17 03/13/17 03/13/17 09:22 10:18 15:06 CMV IgG Ab Positive A CMV IgM Ab Positive A EBV Capsid Ag IgG Ab Positive A EBV Capsid Ag IgM Ab Positive A EBV Early Antigen IgG Negative EBV EA IgG Ab Interp <5.0 EBV Nuclear Antigen Ab Positive A Urine Histoplasma Ag Negative U Histoplasma Ag Detec 0.00 Q Fever Phase I IgG Ab <1:16 Q Fever Phase I IgM Ab <1:16 Q Fever Phase II IgG Ab <1:16 Q Fever Phase II IgM Ab <1:16 Microbiology Results: Microbiology 03/11/17 19:51 Peripheral/Iv Start Blood Culture - Final No Growth After 5 Days 03/11/17 19:58 Peripheral/Iv Start Blood Culture - Final No Growth After 5 Days Impression: Fever secondary to viral infection, suspect acute CMV (both CMV and EBV serology are positive) Elevated LFTs, improving Hypotension and dehydration, improved HTN Obesity Dyslipidemia Low back pain, MRI LS was unremarkable RLE DVT and PE (patient was not wanting to use SCD's) Recommendation: Continue supportive care. I discussed with him that I think most likely his illnesses secondary to acute CMV and that the positive EBV tests are cross- reacting. I think that CMV is more likely given his age and his elevated liver function tests. I discussed with him that in general his fever is improving and I would expect that he will continue to feel better gradually. I also discussed with him that he might have fatigue that lasts for several weeks following this illness. From my standpoint I think he could be discharged home soon.
[2017-03-18] MEDS ORDERED: FUROSEMIDE 20 MG/2 ML INJECTION IVP ONE (09:40)
--- NOTE | 2017-03-18 09:44 | Progress Note ---
- Date 03/18/17 Subjective: Rodolfo is feeling better, but is still short of breath and weak overall. He had diarrhea yesterday after breakfast but was made it through lunch and dinner without diarrhea. He states that his hands were swollen yesterday but seem better today. His fevers are improving. Dr. Jackson was also at bedside and told him that EBV and CMV cross react during testing, and she suspects that EBV is false positive. Objective Vital signs: Temperature 97.7 F 03/18/17 07:18 Pulse Rate 103 H 03/18/17 08:00 Respiratory Rate 36 H 03/18/17 07:18 Blood Pressure 130/74 03/18/17 07:18 Pulse Oximetry 93 03/18/17 07:18 Height/Weight/BMI: Height 1.78 m Weight 118.8 kg Body Mass Index 35.8 - Constitutional Present: mild distress, well nourished, well developed, obese - Routine HEENT Exam Head: Present: normocephalic - Routine Respiratory Exam Present: decreased breath sounds (B/L bases, R>L) - Routine Cardiovascular Exam Present: RRR, S1, S2 - Routine Abdominal Exam Present: soft, normoactive bowel sounds, non distended, non tender - Routine Extremities Exam Present: edema (2+ on right, 1+ on left), pulses intact - Routine Musculoskeletal Exam Musculoskeletal: Present: moving extremities well - Routine Skin Exam Present: intact, dry, warm - Routine Neurological Exam Present: alert, oriented X3 - Routine Psychiatric Exam Present: normal affect, normal thought process, cooperative Results - Labs CBC & Chem 7: 03/17/17 05:19 03/18/17 04:27 Microbiology Results: Microbiology 03/11/17 19:51 Peripheral/Iv Start Blood Culture - Final No Growth After 5 Days 03/11/17 19:58 Peripheral/Iv Start Blood Culture - Final No Growth After 5 Days Assessment and Plan (1) Hypotension Current visit: Yes Status: Resolved (2) Febrile illness, acute Current visit: Yes Status: Acute Assessment and Plan: Assessment: CMV infection DVT RLE and Right sided PE Hypotension, resolved Dehydration, FeNa-0.17% Severe sepsis suspected - ruled out -- no definitive bacterial pathogens found Febrile illness Abdominal pain Transaminitis Dehydration, FeNa-0.17% Hypokalemia (POA) Anorexia, present on admission CKD, stage III Hypertension Hyperlipidemia Obesity, BMI 36.1 Tachycardia Fluid overload Plan: 03/18/17 CT report reviewed -- small right pleural effusion and trace on left, in addition to right PE and poss pulmonary infarct. Continue Xarelto - will check on pricing today. Weight is up 3-4 kg from admission and he is still tachypneic. Will stop PO Lasix (he had 20 mg PO this am) and give 40 mg IV x1. He may need additional diuresis but will assess his response to the IV dose before ordering additional diuresis. He doesn't take Lasix at home. K was 3.4 and extra replacement has been ordered to account for increased diuretics. Dr. Jackson suspects that CMV is the cause for his viral illness and that EBV was a false positive (CMV and EBV cross react) - she also informed him that he may feel fatigued for several weeks. She recommends supportive care. DVT Prophylaxis: Xarelto Resuscitation Status: Full Code - Time spent with patient Time with patient PN: 25 minutes - Physician Narrative Physician: Brennon Chatman MD Narrative: Date: 03/18/17 Time: 1520 Have independently interviewed and examined pt. Chart reviewed. Case discussed with my CM, Family, and my TIERCE FILLER. Care plan developed with my supervision; agree with above. Walked in [place]-went pretty far, reports was tiring. Breathing short/shallow, but keeping saturations up and maintaining on RA. Not having pain with breathing. Increased urine output with IV Lasix-in bathroom frequently this am. Bowels starting to form. Eating more-but not much hunger and food still without taste. Lungs; decreased bilaterally CV: tachy, regular AB: soft nt/nd MSE: awake alert Plan: CM checked on Xarelto cost-$25 a month which is manageable for them. Continue ambulation to help strength. Likely home tomorrow if continues to do well-clinically making gains. Hospital Course Summary Disclaimer: The visit summary below is not to be considered part of the above Progress Note. Hospital Course: 03/11/17 Damion presents with 1 week anorexia/poor intake of fluids with increasing dizziness and weakness suggesting dehydration. Urine sodium/fractional excretion consistent with dehydration. Hydration initiated overnight in conjunction with potassium replacement; continues to require IV fluids at this time. Abdomen is quite tender especially in the upper abdomen and right upper quadrant. Will image with gallbladder sonogram due to renal insufficiency but CT may be needed. Switch to IV PPI, hold oral antihypertensives. Anticipate surgical consultation due to marked tenderness. Lactic acid/procalcitonin are not elevated. Blood cultures pending. Continue telemetry. Biotic subsequently initiated when patient developed temperature of 103 03/12/17 Maximum temperature 102.2 degrees yesterday evening-empirically started on Levaquin/metronidazole for abdominal coverage. Blood cultures 4 negative of present. Imaging does not reveal source for infection, diarrhea today but C. difficile is negative and no other enteric pathogens identified. Overnight patient met criteria for severe sepsis with fever, tachypnea, tachycardia, and creatinine above baseline (although may be due to dehydration) . 11% bands present today but total white count remains normal. Doxycycline added for atypical infection given elevated transaminases; Dr. Jackson consulted. Discussed with Dr. Aguilera-clear liquids being initiated, may require EGD although that would not explain fever even if explain pain. Chest x-ray today; was unremarkable prior to hydration. Respiratory viral panel negative. Renal function is improved significantly with hydration and potassium is improving. 03/13/17 Continues to have episodic fevers, started on Levaquin/metronidazole for abdominal coverage 03/11 and doxycycline 03/12. Blood cultures 4 negative at present. White count remains normal although increased bands present. Transaminases slightly higher today-acute hepatitis panel negative in the outpatient office recently. AST/ALT were normal in August 2016. Dr. Jackson saw patient today-will discontinue Levaquin/metronidazole but continue doxycycline pending multiple additional studies that are been ordered as outlined in Dr. Jackson note. Imaging does not reveal source for infection, diarrhea today but C. difficile is negative and no other enteric pathogens identified. Evaluation for noninfectious sources of fever initiated; may require temporal artery biopsy. No visual symptoms described. Abdominal symptoms improving, discussed with Dr. Aguilera-advanced to full liquids although anticipate little oral intake. Currently on omeprazole and Carafate. Renal function has stabilized. Telemetry (reviewed by myself) with persistent low-grade sinus tachycardia and occasional PVCs; with improvement in blood pressure will resuming metoprolol at 50 mg twice a day. Total calcium decreased but corrects for low albumin. 03/14/[address] chest secondary to dyspnea - would avoid contrast at this time due to elevation of creatinine to 1.7 at presentation (improved to 1.3 today). Culturelle 2 tablets TID with meals to help bowel function. Will hold on Metoprolol as HR decreased to 60s. BP stable in the 110 range. BRISEIDA remains on hold. Potassium decreased to 3.4 this am. Will give oral potassium today at noon. Continue doxycycline as recommended by ID. BC negative. Seeing less temperature elevations. Send out serology pending. Continue IVF for hydration due to decreased oral drive. Encourage increasing activities as able to help functional status. Recheck CMP in am to monitor renal and liver status. Check CBC in am due to febrile process. Will repeat CRP in am 03/15/16 CMV IgG and IgM both positive (IgM pos and IgG neg would suggest a past infection) - diagnosis reviewed, treatment is supportive. d/w Dr. Jackson - liset watt ( states it's been causing diarrhea). Multiple other serologies still pending though CMV would explain sx and transaminitis. MRI back pending. K 3.4 - additional replacement ordered. BP stable but HR varies btwn 58-117. Decrease rate of IVF to [address]: trace of a right pleural effusion with adjacent passive atelectasis at the right posterior sulcus. No mediastinal or hilar lymphadenopathy. The lungs are otherwise clear. Consult PT/OT 03/16/17 Patient is slowly improving. Concerned with tachypnea. Will assess CXR. Stop IVF. Diurese with Lasix and order routine replacement. Weight is up about 15 pounds since admission. He reports some ongoing edema, but now worse. Will order an echo, and also a RLE US, doppler. +DVT RLE Will start Lovenox as SCD are not being utilized. He has been tolerating lower dose of metoprolol- increase to BID for HR control. Change Protonix from IV BID to oral once a day. Can advance diet to regular. Nursing to ambulate QID to help strength. 03/17/17 CT PE ordered for dyspnea, + for PE. We discussed risks/benefits of anticoagulation and reviewed specific characteristics of Coumadin vs. Xarelto. He would like to take Xarelto for anticoagulation. We reviewed the symptoms of CMV and EBV, and treatment, which is supportive. LFTs are trending down. Continue with diuresis, but as mentioned we are giving some IVF for renal protection. K low normal (3.6) - will give extra dose of KDur today. 03/18/17 CT report reviewed -- small right pleural effusion and trace on left, in addition to right PE and poss pulmonary infarct. Continue Xarelto Weight is up 3-4 kg from admission and he is still tachypneic. Will stop PO Lasix (he had 20 mg PO this am) and give 40 mg IV x1. He may need additional diuresis but will assess his response to the IV dose before ordering additional diuresis. He doesn't take Lasix at home. K was 3.4 and extra replacement has been ordered to account for increased diuretics. Dr. Jackson suspects that CMV is the cause for his viral illness and that EBV was a false positive (CMV and EBV cross react) - she also informed him that he may feel fatigued for several weeks. She recommends supportive care.
--- NOTE | 2017-03-18 19:21 | Echocardiogram ---
DATE OF PROCEDURE March 18, 2017 This is a two-dimensional echo with spectral Doppler, color-flow and M-mode. It was obtained in a patient with edema, shortness of breath and fatigue. Left atrial dimension is normal. Left ventricular end-diastolic dimension is normal. Left ventricular wall thickness is normal. LV systolic function is grossly normal. However, all gray were not visualized. Ejection fraction is about 60%. Right atrium is normal. Right ventricle is normal. Aortic root dimension is normal. Mitral valve is morphologically normal. Aortic valve appears to be normal with some fibrocalcific changes with no stenosis or insufficiency. Tricuspid valve shows mild tricuspid regurgitation with normal estimated pulmonary artery systolic pressure of 27. Pulmonary valve shows trace of pulmonary insufficiency. There is no pericardial effusion. IMPRESSION 1. Technically difficult study. 2. Grossly normal LV systolic function with ejection fraction of about 60%. 3. Aortic sclerosis. 4. Mild tricuspid regurgitation with normal estimated pulmonary artery systolic pressure of 27. 5. Trace of pulmonary insufficiency. MTDD
[2017-03-19] MEDS: ACETAMINOPHEN 325 MG TABLET PO PRN (00:37)
[2017-03-19] MEDS: PANTOPRAZOLE 40 MG TABLET PO SCH (05:55)
[2017-03-19] MEDS: SUCRALFATE 1 GM TABLET PO SCH ×2 (05:55→11:52)
[2017-03-19] MEDS: RIVAROXABAN 15 MG TABLET PO SCH ×2 (08:11→18:18)
[2017-03-19] MEDS: LACTOBACILLUS (15B cfu) CAPSULE PO SCH ×3 (08:11→18:17)
[2017-03-19] MEDS: CETIRIZINE 10 MG TABLET PO SCH (08:12)
--- NOTE | 2017-03-19 12:13 | Progress Note ---
- Date 03/19/17 Subjective: Rodolfo is weaker today, and doesn't have much energy. He asked for the urinal earlier rather than to get out of bed and walk to the bathroom. He had a fever of 100.4 last night. He states that he was very active yesterday with therapy, and his son commented that maybe that's why he's so much weaker. His also reports increased leg swelling, even compared to yesterday. Rodolfo denies feeling short of breath; no chest pain. He was placed on oxygen last night but review of sats on tele shows 90% or greater before O2 was started. He is still tachypneic but speaks full sentences. He had a loose stool this am. Objective Vital signs: Temperature 98.7 F 03/19/17 08:00 Pulse Rate 97 03/19/17 08:00 Respiratory Rate 20 03/19/17 08:00 Blood Pressure 123/75 03/19/17 08:00 Pulse Oximetry 96 03/19/17 08:00 Height/Weight/BMI: Height 1.78 m Weight 118.2 kg Body Mass Index 35.8 - Constitutional Present: no acute distress, well nourished, well developed - Routine HEENT Exam Head: Present: normocephalic Eye: Absent: conjunctival icterus, scleral injection - Routine Respiratory Exam Present: decreased breath sounds (bases) Comments: tachypnea, shallow breaths - Routine Cardiovascular Exam Present: RRR, S1, S2 - Routine Abdominal Exam Present: soft, normoactive bowel sounds, non distended, non tender - Routine Extremities Exam Present: edema (3+ around R ankle and 2+ around left; edema extends into thighs and trace edema noted to lower back) - Routine Musculoskeletal Exam Musculoskeletal: Present: no clubbing or cyanosis - Routine Skin Exam Present: intact, dry, warm - Routine Neurological Exam Present: alert, oriented X3, normal speech - Routine Psychiatric Exam Present: normal affect, normal thought process, cooperative Results - Labs CBC & Chem 7: 03/17/17 05:19 03/19/17 04:27 Microbiology Results: Microbiology 03/11/17 19:51 Peripheral/Iv Start Blood Culture - Final No Growth After 5 Days 03/11/17 19:58 Peripheral/Iv Start Blood Culture - Final No Growth After 5 Days Assessment and Plan (1) Hypotension Current visit: Yes Status: Resolved (2) Febrile illness, acute Current visit: Yes Status: Acute Assessment and Plan: Assessment: CMV infection DVT RLE and Right sided PE Hypotension, resolved Dehydration, FeNa-0.17% Severe sepsis suspected - ruled out -- no definitive bacterial pathogens found Febrile illness -- improving Abdominal pain -- resolved Transaminitis, secondary to CMV -- improving Dehydration, FeNa-0.17% Hypokalemia (POA) Anorexia, present on admission CKD, stage III Hypertension Hyperlipidemia Obesity, BMI 36.1 Tachycardia Fluid overload Plan: 03/19/17 Weight has not responded much to Lasix given yesterday, and legs are more edematous today. Will give Bumex 1 mg IV x1. Give extra KDur. LFTs continue to trend down. Echo report: EF 60%; trace TR, trace PI Will order IRU screen. Discussed with family & with Dr. Chatman. DVT Prophylaxis: Xarelto GI Prophylaxis: Protonix Resuscitation Status: Full Code - Time spent with patient Time with patient PN: 25 minutes - Physician Narrative Physician: Brennon Chatman MD Narrative: Date: 03/19/17 Time: 5 Have independently interviewed and examined pt. Chart reviewed. Case discussed with CM and my JEWELRY SORTER. Care plan developed with my supervision; agree with above. Up and down day. Pretty tired from activities yesterday, but was able to be out ambulating 3 times today. Strength decreased, but tolerated walking. Stools starting to form. No ab pain or nausea. Eating, but nothing tastes right. Breathing still feels short and shallow. Not hurting with breathing. Did have coughing spell last night-reports swallow wrong. Urinating well-increased urine output since Bumex given this am. Lungs: decreased, no distress CV: regular AB: soft nt/nd BS present EXT: little change in LLE edema MSE: awake alert Plan: IV Bumex to help decrease edema/volume. Can stop Carafate. Continue activities. Encourage elevation of LE to help edema-discussed with family about elevation and sodium minimization. Reviewed ECHO results with family. LFT trending down - would continue to hold simvastatin. Hope for discharge to home tomorrow. Hospital Course Summary Disclaimer: The visit summary below is not to be considered part of the above Progress Note. Hospital Course: 03/11/17 Damion presents with 1 week anorexia/poor intake of fluids with increasing dizziness and weakness suggesting dehydration. Urine sodium/fractional excretion consistent with dehydration. Hydration initiated overnight in conjunction with potassium replacement; continues to require IV fluids at this time. Abdomen is quite tender especially in the upper abdomen and right upper quadrant. Will image with gallbladder sonogram due to renal insufficiency but CT may be needed. Switch to IV PPI, hold oral antihypertensives. Anticipate surgical consultation due to marked tenderness. Lactic acid/procalcitonin are not elevated. Blood cultures pending. Continue telemetry. Biotic subsequently initiated when patient developed temperature of 103 03/12/17 Maximum temperature 102.2 degrees yesterday evening-empirically started on Levaquin/metronidazole for abdominal coverage. Blood cultures 4 negative of present. Imaging does not reveal source for infection, diarrhea today but C. difficile is negative and no other enteric pathogens identified. Overnight patient met criteria for severe sepsis with fever, tachypnea, tachycardia, and creatinine above baseline (although may be due to dehydration) . 11% bands present today but total white count remains normal. Doxycycline added for atypical infection given elevated transaminases; Dr. Jackson consulted. Discussed with Dr. Aguilera-clear liquids being initiated, may require EGD although that would not explain fever even if explain pain. Chest x-ray today; was unremarkable prior to hydration. Respiratory viral panel negative. Renal function is improved significantly with hydration and potassium is improving. 03/13/17 Continues to have episodic fevers, started on Levaquin/metronidazole for abdominal coverage 03/11 and doxycycline 03/12. Blood cultures 4 negative at present. White count remains normal although increased bands present. Transaminases slightly higher today-acute hepatitis panel negative in the outpatient office recently. AST/ALT were normal in August 2016. Dr. Jackson saw patient today-will discontinue Levaquin/metronidazole but continue doxycycline pending multiple additional studies that are been ordered as outlined in Dr. Jackson note. Imaging does not reveal source for infection, diarrhea today but C. difficile is negative and no other enteric pathogens identified. Evaluation for noninfectious sources of fever initiated; may require temporal artery biopsy. No visual symptoms described. Abdominal symptoms improving, discussed with Dr. Aguilera-advanced to full liquids although anticipate little oral intake. Currently on omeprazole and Carafate. Renal function has stabilized. Telemetry (reviewed by myself) with persistent low-grade sinus tachycardia and occasional PVCs; with improvement in blood pressure will resuming metoprolol at 50 mg twice a day. Total calcium decreased but corrects for low albumin. 03/14/[address] chest secondary to dyspnea - would avoid contrast at this time due to elevation of creatinine to 1.7 at presentation (improved to 1.3 today). Culturelle 2 tablets TID with meals to help bowel function. Will hold on Metoprolol as HR decreased to 60s. BP stable in the 110 range. BRISEIDA remains on hold. Potassium decreased to 3.4 this am. Will give oral potassium today at noon. Continue doxycycline as recommended by ID. BC negative. Seeing less temperature elevations. Send out serology pending. Continue IVF for hydration due to decreased oral drive. Encourage increasing activities as able to help functional status. Recheck CMP in am to monitor renal and liver status. Check CBC in am due to febrile process. Will repeat CRP in am 03/15/16 CMV IgG and IgM both positive (IgM pos and IgG neg would suggest a past infection) - diagnosis reviewed, treatment is supportive. d/w Dr. Jackson - liset watt ( states it's been causing diarrhea). Multiple other serologies still pending though CMV would explain sx and transaminitis. MRI back pending. K 3.4 - additional replacement ordered. BP stable but HR varies btwn 58-117. Decrease rate of IVF to [address]: trace of a right pleural effusion with adjacent passive atelectasis at the right posterior sulcus. No mediastinal or hilar lymphadenopathy. The lungs are otherwise clear. Consult PT/OT 03/16/17 Patient is slowly improving. Concerned with tachypnea. Will assess CXR. Stop IVF. Diurese with Lasix and order routine replacement. Weight is up about 15 pounds since admission. He reports some ongoing edema, but now worse. Will order an echo, and also a RLE US, doppler. +DVT RLE Will start Lovenox as SCD are not being utilized. He has been tolerating lower dose of metoprolol- increase to BID for HR control. Change Protonix from IV BID to oral once a day. Can advance diet to regular. Nursing to ambulate QID to help strength. 03/17/17 CT PE ordered for dyspnea, + for PE. We discussed risks/benefits of anticoagulation and reviewed specific characteristics of Coumadin vs. Xarelto. He would like to take Xarelto for anticoagulation. We reviewed the symptoms of CMV and EBV, and treatment, which is supportive. LFTs are trending down. Continue with diuresis, but as mentioned we are giving some IVF for renal protection. K low normal (3.6) - will give extra dose of KDur today. 03/18/17 CT report reviewed -- small right pleural effusion and trace on left, in addition to right PE and poss pulmonary infarct. Continue Xarelto Weight is up 3-4 kg from admission and he is still tachypneic. Will stop PO Lasix (he had 20 mg PO this am) and give 40 mg IV x1. He may need additional diuresis but will assess his response to the IV dose before ordering additional diuresis. He doesn't take Lasix at home. K was 3.4 and extra replacement has been ordered to account for increased diuretics. Dr. Jackson suspects that CMV is the cause for his viral illness and that EBV was a false positive (CMV and EBV cross react) - she also informed him that he may feel fatigued for several weeks. She recommends supportive care. 03/19/17 Weight has not responded much to Lasix given yesterday, and legs are more edematous today. Will give Bumex 1 mg IV x1. Give extra KDur. LFTs continue to trend down. Echo report: EF 60%; trace TR, trace PI. Will order IRU screen.
[2017-03-20] VITALS: RESP 28
[2017-03-20] MEDS: SALINE FLUSH 10ml SYRINGE IVF PRN (05:39)
[2017-03-20] MEDS: PANTOPRAZOLE 40 MG TABLET PO SCH (05:39)
[2017-03-20] MEDS: LACTOBACILLUS (15B cfu) CAPSULE PO SCH ×2 (08:14→13:13)
[2017-03-20] MEDS: CETIRIZINE 10 MG TABLET PO SCH (08:14)
[2017-03-20] MEDS: RIVAROXABAN 15 MG TABLET PO SCH (08:14)
[2017-03-20 09:32] VITALS: BP 136/80; TEMP 96.6; O2SAT 92
--- NOTE | 2017-03-20 14:19 | Progress Note ---
- Date 03/20/17 Subjective: F/U: CMV infection, weakness Doing slightly better today-has been up walking several times, feels more strength and stability today than yesterday. Much less concerned about going home today as compared to how he felt yesterday. Breathing the same-notes slight SOA, but not having cough, congestion, or pain with breathing. No chest pressure or palpitations. Urinating well. Stools moving-formed. Not much appetite, but eating. Objective Vital signs: Temperature 96.6 F L 03/20/17 08:00 Pulse Rate 110 H 03/20/17 08:00 Respiratory Rate 28 H 03/19/17 23:58 Blood Pressure 136/80 03/20/17 08:00 Pulse Oximetry 92 03/20/17 08:00 Height/Weight/BMI: Height 1.78 m Weight 116.5 kg Body Mass Index 35.8 - Constitutional Present: well nourished, well developed, obese, cooperative - Routine HEENT Exam Head: Present: normocephalic, atraumatic Eye: Present: EOMI, PERRL ENT: Present: mucous membranes moist - Routine Respiratory Exam Present: decreased breath sounds, diminished air movement. Absent: respiratory distress, wheezes, crackles - Routine Cardiovascular Exam Present: RRR, no murmur - Routine Abdominal Exam Present: soft, normoactive bowel sounds. Absent: guarding - Routine Extremities Exam Present: cyanosis, clubbing, edema, pulses intact - Routine Musculoskeletal Exam Musculoskeletal: Absent: no clubbing or cyanosis - Routine Skin Exam Present: dry, warm - Routine Neurological Exam Present: alert, oriented X3, CN II-XII intact, moving all extremities, vision grossly intact, hearing grossly intact, normal speech. Absent: motor deficit, altered mental status - Routine Psychiatric Exam Present: normal affect, normal thought process, cooperative Results - Labs CBC & Chem 7: 03/20/17 04:25 03/20/17 04:25 Microbiology Results: Microbiology 03/11/17 19:51 Peripheral/Iv Start Blood Culture - Final No Growth After 5 Days 03/11/17 19:58 Peripheral/Iv Start Blood Culture - Final No Growth After 5 Days Assessment and Plan (1) Hypotension Current visit: Yes Status: Resolved (2) Febrile illness, acute Current visit: Yes Status: Acute Assessment and Plan: Assessment: CMV infection DVT RLE and Right sided PE Hypotension, resolved Dehydration, FeNa-0.17% Severe sepsis suspected - ruled out -- no definitive bacterial pathogens found Febrile illness -- improving Abdominal pain -- resolved Transaminitis, secondary to CMV -- improving Dehydration, FeNa-0.17% - resolved Hypokalemia (POA) Anorexia, present on admission CKD, stage III Hypertension Hyperlipidemia ANGEL - addressed with CPAP Obesity, BMI 36.1 Tachycardia Fluid overload Plan Will discharge to home. Home health set up for patient. Encourage increasing activities. Will need Xarelto 15mg BID for doses, then increase to 20mg with supper - needs at least 6 months of treatment. Tylenol okay for pain. Advised patient and his not to use other OTC pain medications (NSAIDS) due to Xarelto use. Return to home metoprolol dosing. Hold lisinopril as blood pressure doing well off of this medication. Would hold simvastatin until liver enzymes normalize. F/U with Dr Linton in 1 week - would recommend CMP at that time. See orders for details. Case discussed with CM and patient's . Time spent with discharge greater than 30 minutes. DVT Prophylaxis: Xarelto Resuscitation Status: Full Code - Physician Narrative Physician: Brennon Chatman MD Narrative: Date: 03/20/17 Time: 1416 Hospital Course Summary Disclaimer: The visit summary below is not to be considered part of the above Progress Note. Hospital Course: 03/11/17 Damion presents with 1 week anorexia/poor intake of fluids with increasing dizziness and weakness suggesting dehydration. Urine sodium/fractional excretion consistent with dehydration. Hydration initiated overnight in conjunction with potassium replacement; continues to require IV fluids at this time. Abdomen is quite tender especially in the upper abdomen and right upper quadrant. Will image with gallbladder sonogram due to renal insufficiency but CT may be needed. Switch to IV PPI, hold oral antihypertensives. Anticipate surgical consultation due to marked tenderness. Lactic acid/procalcitonin are not elevated. Blood cultures pending. Continue telemetry. Biotic subsequently initiated when patient developed temperature of 103 03/12/17 Maximum temperature 102.2 degrees yesterday evening-empirically started on Levaquin/metronidazole for abdominal coverage. Blood cultures 4 negative of present. Imaging does not reveal source for infection, diarrhea today but C. difficile is negative and no other enteric pathogens identified. Overnight patient met criteria for severe sepsis with fever, tachypnea, tachycardia, and creatinine above baseline (although may be due to dehydration) . 11% bands present today but total white count remains normal. Doxycycline added for atypical infection given elevated transaminases; Dr. Jackson consulted. Discussed with Dr. Aguilera-clear liquids being initiated, may require EGD although that would not explain fever even if explain pain. Chest x-ray today; was unremarkable prior to hydration. Respiratory viral panel negative. Renal function is improved significantly with hydration and potassium is improving. 03/13/17 Continues to have episodic fevers, started on Levaquin/metronidazole for abdominal coverage 03/11 and doxycycline 03/12. Blood cultures 4 negative at present. White count remains normal although increased bands present. Transaminases slightly higher today-acute hepatitis panel negative in the outpatient office recently. AST/ALT were normal in August 2016. Dr. Jackson saw patient today-will discontinue Levaquin/metronidazole but continue doxycycline pending multiple additional studies that are been ordered as outlined in Dr. Jackson note. Imaging does not reveal source for infection, diarrhea today but C. difficile is negative and no other enteric pathogens identified. Evaluation for noninfectious sources of fever initiated; may require temporal artery biopsy. No visual symptoms described. Abdominal symptoms improving, discussed with Dr. Aguilera-advanced to full liquids although anticipate little oral intake. Currently on omeprazole and Carafate. Renal function has stabilized. Telemetry (reviewed by myself) with persistent low-grade sinus tachycardia and occasional PVCs; with improvement in blood pressure will resuming metoprolol at 50 mg twice a day. Total calcium decreased but corrects for low albumin. 03/14/[address] chest secondary to dyspnea - would avoid contrast at this time due to elevation of creatinine to 1.7 at presentation (improved to 1.3 today). Culturelle 2 tablets TID with meals to help bowel function. Will hold on Metoprolol as HR decreased to 60s. BP stable in the 110 range. BRISEIDA remains on hold. Potassium decreased to 3.4 this am. Will give oral potassium today at noon. Continue doxycycline as recommended by ID. BC negative. Seeing less temperature elevations. Send out serology pending. Continue IVF for hydration due to decreased oral drive. Encourage increasing activities as able to help functional status. Recheck CMP in am to monitor renal and liver status. Check CBC in am due to febrile process. Will repeat CRP in am 03/15/16 CMV IgG and IgM both positive (IgM pos and IgG neg would suggest a past infection) - diagnosis reviewed, treatment is supportive. d/w Dr. Jackson - liset watt ( states it's been causing diarrhea). Multiple other serologies still pending though CMV would explain sx and transaminitis. MRI back pending. K 3.4 - additional replacement ordered. BP stable but HR varies btwn 58-117. Decrease rate of IVF to [address]: trace of a right pleural effusion with adjacent passive atelectasis at the right posterior sulcus. No mediastinal or hilar lymphadenopathy. The lungs are otherwise clear. Consult PT/OT 03/16/17 Patient is slowly improving. Concerned with tachypnea. Will assess CXR. Stop IVF. Diurese with Lasix and order routine replacement. Weight is up about 15 pounds since admission. He reports some ongoing edema, but now worse. Will order an echo, and also a RLE US, doppler. +DVT RLE Will start Lovenox as SCD are not being utilized. He has been tolerating lower dose of metoprolol- increase to BID for HR control. Change Protonix from IV BID to oral once a day. Can advance diet to regular. Nursing to ambulate QID to help strength. 03/17/17 CT PE ordered for dyspnea, + for PE. We discussed risks/benefits of anticoagulation and reviewed specific characteristics of Coumadin vs. Xarelto. He would like to take Xarelto for anticoagulation. We reviewed the symptoms of CMV and EBV, and treatment, which is supportive. LFTs are trending down. Continue with diuresis, but as mentioned we are giving some IVF for renal protection. K low normal (3.6) - will give extra dose of KDur today. 03/18/17 CT report reviewed -- small right pleural effusion and trace on left, in addition to right PE and poss pulmonary infarct. Continue Xarelto Weight is up 3-4 kg from admission and he is still tachypneic. Will stop PO Lasix (he had 20 mg PO this am) and give 40 mg IV x1. He may need additional diuresis but will assess his response to the IV dose before ordering additional diuresis. He doesn't take Lasix at home. K was 3.4 and extra replacement has been ordered to account for increased diuretics. Dr. Jackson suspects that CMV is the cause for his viral illness and that EBV was a false positive (CMV and EBV cross react) - she also informed him that he may feel fatigued for several weeks. She recommends supportive care. 03/19/17 Weight has not responded much to Lasix given yesterday, and legs are more edematous today. Will give Bumex 1 mg IV x1. Give extra KDur. LFTs continue to trend down. Echo report: EF 60%; trace TR, trace PI. Will order IRU screen. 03/20/17 Will discharge to home. Home health set up for patient. Encourage increasing activities. Will need Xarelto 15mg BID for doses, then increase to 20mg with supper - needs at least 6 months of treatment. Tylenol okay for pain. Advised patient and his not to use other OTC pain medications (NSAIDS) due to Xarelto use. Return to home metoprolol dosing. Hold lisinopril as blood pressure doing well off of this medication. Would hold simvastatin until liver enzymes normalize. F/U with Dr Linton in 1 week - would recommend CMP at that time. See orders for details.
--- NOTE | 2017-03-20 14:47 | Discharge Summary ---
Discharge Information Date of admission: 03/11/17 01:02 Anticipated date of discharge: 03/20/17 Attending Physician: Brennon Chatman MD Primary care physician: Di Linton DO Consults: Physician Consult: Mick Aguilera Reason For Exam: abdominal pain Physician Consult: Nicole Jackson Reason For Exam: unexplained fever PT/OT - Discharge Diagnosis (1) Hypotension Status: Resolved (2) Febrile illness, acute Status: Acute Admitting diagnosis Hypotension, Abdominal pain, Transaminitis - R/O severe sepsis Discharge diagnosis CMV infection Severe sepsis suspected - ruled out -- no definitive bacterial pathogens found Associated conditions and complications DVT RLE and Right sided PE Hypotension, resolved Dehydration, FeNa-0.17% Febrile illness -- improving Abdominal pain -- resolved Transaminitis, secondary to CMV -- improving Dehydration, FeNa-0.17% - resolved Hypokalemia (POA) Anorexia, present on admission CKD, stage III Hypertension Hyperlipidemia ANGEL - addressed with CPAP Obesity, BMI 36.1 Tachycardia Fluid overload (Not POA) - Procedures Procedures: Date of Exam: 03/18/17 Type of Exam: US ECHO Doppler complete Left atrial dimension is normal. Left ventricular end-diastolic dimension is normal. Left ventricular wall thickness is normal. LV systolic function is grossly normal. However, all gray were not visualized. Ejection fraction is about 60%. Right atrium is normal. Right ventricle is normal. Aortic root dimension is normal. Mitral valve is morphologically normal. Aortic valve appears to be normal with some fibrocalcific changes with no stenosis or insufficiency. Tricuspid valve shows mild tricuspid regurgitation with normal estimated pulmonary artery systolic pressure of 27. Pulmonary valve shows trace of pulmonary insufficiency. There is no pericardial effusion. IMPRESSION 1. Technically difficult study. 2. Grossly normal LV systolic function with ejection fraction of about 60%. 3. Aortic sclerosis. 4. Mild tricuspid regurgitation with normal estimated pulmonary artery systolic pressure of 27. 5. Trace of pulmonary insufficiency. - Laboratory Labs: Admit Lab 03/10/17 21:06 WBC 7.8 Hgb 13.0 L Hct 37.1 L MCV 90.3 Plt Count 190 Neut % (Auto) 52.9 Lymph % (Auto) 34.8 [place] % (Auto) 9.6 H Eos % (Auto) 0.4 Baso % (Auto) 1.9 Admit Lab 03/10/17 21:06 Sodium 134 Potassium 3.2 L Chloride 100 Carbon Dioxide 26 Anion Gap 8 BUN 21.0 H Creatinine 1.7 H GFR Calculation 40 BUN/Creatinine Ratio 12 Glucose 112 H Calculated Osmolality 262 Calcium 7.8 L Total Bilirubin 0.60 AST 81 H ALT 87 H Alkaline Phosphatase 92 Troponin I < 0.012 B-Natriuretic Peptide 248 H Total Protein 6.8 Albumin 3.4 L Globulin 3.4 Albumin/Globulin Ratio 1.0 L Plasma Lactate 1.1 Laboratory Tests 03/13/17 15:06 CMV IgG Ab Positive A CMV IgM Ab Positive A CRP during hospitalization 03/11/17 03/15/17 08:16 04:20 C-Reactive Protein 49.0 H 50.1 H 03/20/17 04:25 03/20/17 04:25 Liver Enzymes at discharge 03/19/17 04:27 Total Bilirubin 0.40 AST 81 H ALT 91 H Pending serology 03/18/17 05:10 A. phagocytophilum Cmmt Pending E.chaffeensis DNA (PCR) Pending E. ewingii/canis (PCR) Pending E. muris-like DNA (PCR) Pending Rickettsia Ab (Spotted Pending [place] Antibody Pending - Microbiology Microbiology 03/11/17 19:51 Peripheral/Iv Start Blood Culture - Final No Growth After 5 Days 03/11/17 19:58 Peripheral/Iv Start Blood Culture - Final No Growth After 5 Days - Radiology Radiology: Date of Exam: 03/10/17 Type of Exam: XR chest 2V Findings: Patient showed similar heart size the previous examination with no new focal parenchymal consolidations or pleural effusions. No acute new bony findings are identified. Central vascularity and mediastinum are stable. Impression: Little change since previous study with no acute new findings. Date of Exam: 03/11/17 Type of Exam: US gall bladder FINDINGS: The gallbladder is thin-walled and nondistended without stones. CBD is normal measuring 4.4 mm. The pancreas is largely obscured by bowel gas. The liver is diffusely echogenic in echotexture without focal abnormality. Color flow Doppler ultrasound was used to evaluate the quality of flow within the portal vein and to document flow in the appropriate direction. The IVC is unremarkable. No free fluid. The right kidney is unremarkable measuring 10.8 cm in length. IMPRESSION: No definite cholelithiasis or evidence for cholecystitis Date of Exam: 03/11/17 Type of Exam: CT abdomen pelvis w con Findings: CT ABDOMEN: Included portions of the lung bases are clear. Heart size normal. No pleural effusion. There is a small hiatal hernia. There are a few small renal cortical cysts. The liver, spleen, kidneys, pancreas, and adrenal glands are otherwise normal. The gallbladder is thin walled and nondistended, without stones. The abdominal aorta is nonaneurysmal with scattered calcific atherosclerotic disease. There is a retroaortic left renal vein. There is no retroperitoneal or mesenteric adenopathy. Nodefinite bowel distention or bowel wall thickening. CT PELVIS: There is pancolonic diverticulosis with both left-sided and right- sided colonic diverticula. No definite peridiverticular inflammatory changes. There is no pelvic sidewall adenopathy. No free fluid. No definite bony destructive process. The urinary bladder is not distended. There is a small bladder diverticulum to the posterior left side of the urinary bladder. The prostate gland is mildly enlarged and heterogeneous with a central calcification and prominent impression on the base of the urinary bladder. A normal appendix is identified. There is moderate degenerative disc disease of the thoracolumbar junction. IMPRESSION: Pancolonic diverticulosis without evidence of diverticulitis. Date of Exam: 03/12/17 PROCEDURE: XR chest 2V Findings: Heart size is normal. The lungs are clear. There is no focal opacity to suggest atelectasis or pneumonia. No mediastinal or hilar adenopathy. No pleural effusion. There is no significant tortuosity of the descending thoracic aorta. There is moderate degenerative disc disease of the thoracic spine. IMPRESSION: No acute process. Date of Exam: 03/14/17 EXAM: CT chest wo con IV contrast FINDINGS: SOFT TISSUES: No axillary or supraclavicular, mediastinal, or hilar lymphadenopathy is identified. The vascular structures appear unremarkable. No significant pericardial effusion is identified. A few coronary artery calcifications are noted. UPPER ABDOMEN: Upper poles of the kidneys, adrenal glands, gallbladder, body and tail of the pancreas, spleen, liver, bowel appear unremarkable. The stomach gray are thickened but may be due to nondistention rather than gastritis. Colonic diverticuli are noted without evidence for acute diverticulitis. CHEST WALL: Unremarkable. BONES: Endplate sclerosis and spurring is noted of the thoracic spine. No evidence for osseous metastasis. LUNGS: There is a trace of a right pleural effusion. There may be some adjacent passive atelectasis at the right posterior sulcus. There may be atelectasis at the left posterior sulcus as well. Mild dependent atelectatic changes are noted. The lungs are otherwise clear. IMPRESSION: 1. There is a trace of a right pleural effusion with adjacent passive atelectasis at the right posterior sulcus. It is uncertain whether there are air bubbles within this pleural collection. 2. No mediastinal or hilar lymphadenopathy. The lungs are otherwise clear. Date of Exam: 03/15/17 EXAMINATION: MR lumbar spine wo/w con FINDINGS: Evaluation limited by artifact resulting in decreased signal intensity of water on the fluid sensitive sequences. No acute fracture. Lordosis of the lumbar spine is maintained. No significant spondylolisthesis. No marrow replacing process. Mild degenerative disc desiccation at L5-S1. No significant disc space height loss. Mild disc bulging and facet arthropathy resulting in prominently mild multilevel neural foraminal narrowing and spinal canal stenosis. No severe spinal canal stenosis appreciated allowing for suboptimal signal intensity on the fluid sensitive sequences. The conus terminates at T12. No clumping of intrathecal nerve roots. No abnormal foci of enhancement. Limited views of the abdomen and pelvis are unremarkable. IMPRESSION: 1. No evidence of discitis/osteomyelitis or other acute abnormality of the lumbar spine. 2. Mild degenerative spondylosis. Date of Exam: 03/16/17 EXAM: US venous Doppler LE RT FINDINGS: All visualized segments of the common femoral, superficial femoral, and popliteal veins are patent with good compressibility and augmentation. Noncompressibility and intraluminal thrombus within the proximal greater saphenous vein. Additional thrombus noted within the proximal anterior tibial vein within the calf. The posterior tibial vein appeared patent. IMPRESSION: 1. Deep venous thrombosis within the proximal anterior tibial vein within the calf. 2. Superficial thrombophlebitis within the proximal greater saphenous vein. Date of Exam: 03/17/17 EXAM: CT angio pulm emboli IMPRESSION: 1. Right lower lobe segmental pulmonary arterial thromboembolus, with overall small clot burden. 2. Right lower lobe airspace consolidation near the embolus raising consideration for developing pulmonary infarct. 3. Small right and trace left pleural effusions with associated mild bilateral lower lobe atelectasis History of Present Illness HPI: Mr. Fatima is a 71yo man with h/o HTN, dyslipidemia, and class 2 obesity but no DM2, CAD, or CVA hx. He has been weak progressively for over a week with inability to ambulate today, but no syncope. He has been lightheaded with standing. No pain, rashes, sob. No recent medication changes. He has not had a SBP less than 90 that he knows of before. For complete details of the H&P refer to that document. Objective Vital signs: Temperature 96.6 F L 03/20/17 08:00 Pulse Rate 110 H 03/20/17 08:00 Respiratory Rate 28 H 03/19/17 23:58 Blood Pressure 136/80 03/20/17 08:00 Pulse Oximetry 92 03/20/17 08:00 Height/Weight/BMI: Height 1.78 m Weight 116.5 kg Body Mass Index 35.8 Hospital Course This is a general summary of the patient's hospital course. For more details refer to the complete medical record. Hospital course: 03/11/17 Damion presents with 1 week anorexia/poor intake of fluids with increasing dizziness and weakness suggesting dehydration. Urine sodium/fractional excretion consistent with dehydration. Hydration initiated overnight in conjunction with potassium replacement; continues to require IV fluids at this time. Abdomen is quite tender especially in the upper abdomen and right upper quadrant. Will image with gallbladder sonogram due to renal insufficiency but CT may be needed. Switch to IV PPI, hold oral antihypertensives. Anticipate surgical consultation due to marked tenderness. Lactic acid/procalcitonin are not elevated. Blood cultures pending. Continue telemetry. Biotic subsequently initiated when patient developed temperature of 103 03/12/17 Maximum temperature 102.2 degrees yesterday evening-empirically started on Levaquin/metronidazole for abdominal coverage. Blood cultures 4 negative of present. Imaging does not reveal source for infection, diarrhea today but C. difficile is negative and no other enteric pathogens identified. Overnight patient met criteria for severe sepsis with fever, tachypnea, tachycardia, and creatinine above baseline (although may be due to dehydration) . 11% bands present today but total white count remains normal. Doxycycline added for atypical infection given elevated transaminases; Dr. Jackson consulted. Discussed with Dr. Aguilera-clear liquids being initiated, may require EGD although that would not explain fever even if explain pain. Chest x-ray today; was unremarkable prior to hydration. Respiratory viral panel negative. Renal function is improved significantly with hydration and potassium is improving. 03/13/17 Continues to have episodic fevers, started on Levaquin/metronidazole for abdominal coverage 03/11 and doxycycline 03/12. Blood cultures 4 negative at present. White count remains normal although increased bands present. Transaminases slightly higher today-acute hepatitis panel negative in the outpatient office recently. AST/ALT were normal in August 2016. Dr. Jackson saw patient today-will discontinue Levaquin/metronidazole but continue doxycycline pending multiple additional studies that are been ordered as outlined in Dr. Jackson note. Imaging does not reveal source for infection, diarrhea today but C. difficile is negative and no other enteric pathogens identified. Evaluation for noninfectious sources of fever initiated; may require temporal artery biopsy. No visual symptoms described. Abdominal symptoms improving, discussed with Dr. Aguilera-advanced to full liquids although anticipate little oral intake. Currently on omeprazole and Carafate. Renal function has stabilized. Telemetry with persistent low-grade sinus tachycardia and occasional PVCs; with improvement in blood pressure will resuming metoprolol at 50 mg twice a day. Total calcium decreased but corrects for low albumin. 03/14/[address] non contrast CT chest secondary to dyspnea - would avoid contrast at this time due to elevation of creatinine to 1.7 at presentation (improved to 1.3 today). Culturelle 2 tablets TID with meals to help bowel function. Will hold on Metoprolol as HR decreased to 60s. BP stable in the 110 range. BRISEIDA remains on hold. Potassium decreased to 3.4 this am. Will give oral potassium today at noon. Continue doxycycline as recommended by ID. BC negative. Seeing less temperature elevations. Send out serology pending. Continue IVF for hydration due to decreased oral drive. Encourage increasing activities as able to help functional status. 03/15/16 CMV IgG and IgM both positive (IgM pos and IgG neg would suggest a past infection) - diagnosis reviewed, treatment is supportive. Discussed with Dr. Jackson - liset watt ( states it's been causing diarrhea). Multiple other serologies still pending though CMV would explain sx and transaminitis. MRI back no discitis. K 3.4 - additional replacement ordered. BP stable but HR varies btwn 58-117. Decrease rate of IVF to [address]: trace of a right pleural effusion with adjacent passive atelectasis at the right posterior sulcus. No mediastinal or hilar lymphadenopathy. The lungs are otherwise clear. Consult PT/OT 03/16/17 Patient is slowly improving. Concerned with tachypnea. Will assess CXR. Stop IVF. Diurese with Lasix and order routine replacement. Weight is up about 15 pounds since admission. He reports some ongoing edema, but now worse. Will order an echo, and also a RLE US, doppler. +DVT RLE Will start Lovenox as SCD are not being utilized. He has been tolerating lower dose of metoprolol- increase to BID for HR control. Change Protonix from IV BID to oral once a day. Can advance diet to regular. Nursing to ambulate QID to help strength. 03/17/17 CT PE ordered for dyspnea, + for PE. We discussed risks/benefits of anticoagulation and reviewed specific characteristics of Coumadin vs. Xarelto. He would like to take Xarelto for anticoagulation. We reviewed the symptoms of CMV and EBV, and treatment, which is supportive. LFTs are trending down. Continue with diuresis, but as mentioned we are giving some IVF for renal protection. K low normal (3.6) - will give extra dose of KDur today. 03/18/17 CT report reviewed -- small right pleural effusion and trace on left, in addition to right PE and poss pulmonary infarct. Continue Xarelto Weight is up 3-4 kg from admission and he is still tachypneic. Will stop PO Lasix (he had 20 mg PO this am) and give 40 mg IV x1. He may need additional diuresis but will assess his response to the IV dose before ordering additional diuresis. He doesn't take Lasix at home. K was 3.4 and extra replacement has been ordered to account for increased diuretics. Dr. Jackson suspects that CMV is the cause for his viral illness and that EBV was a false positive (CMV and EBV cross react) - she also informed him that he may feel fatigued for several weeks. She recommends supportive care. 03/19/17 Weight has not responded much to Lasix given yesterday, and legs are more edematous today. Will give Bumex 1 mg IV x1. Give extra KDur. LFTs continue to trend down. Echo report: EF 60%; trace TR, trace PI. Will order IRU screen. 03/20/17 Will discharge to home. Home health set up for patient. Encourage increasing activities. Will need Xarelto 15mg BID for 36 more doses, then increase to 20mg with supper - needs at least 6 months of treatment. Tylenol okay for pain. Advised patient and his not to use other OTC pain medications (NSAIDS) due to Xarelto use. Return to home metoprolol dosing. Hold lisinopril as blood pressure doing well off of this medication. Would hold simvastatin until liver enzymes normalize. F/U with Dr Linton in 1 week - would recommend CMP at that time. See orders for details. Time spent with patient: discharge greater than 30 minutes Resuscitation Status: Full Code Discharge Plan - Discharge Disposition Discharge Date: 03/20/17 Disposition: 86 Home Health Service *Condition: Stable Reason For Visit (Visit label in EMR): Hypotension - Discharge Medications *Discharge Medications: New Acetaminophen [Tylenol] 650 mg PO QID PRN tab PRN Reason: Discomfort Rivaroxaban [Xarelto] 15 mg PO BIDWM #36 tab Rivaroxaban [Xarelto] 20 mg PO WS #30 tab Continue Omeprazole 20 mg PO DAILY #0 Metoprolol Tartrate 50 mg PO HS #0 Multivitamins (Multivitamin) 1 tab PO DAILY #0 Cetirizine HCl 10 mg PO DAILY #0 Mometasone Furoate [Nasonex] 2 spray NS PRN #0 Metoprolol Tartrate 100 mg PO DAILY Discontinued Lisinopril 20 mg PO DAILY #0 Simvastatin 40 mg PO HS #0 Meloxicam 15 mg PO DAILY #0 Lisinopril/Hctz 10/12.5 [Prinzide 10/12.5] 2 tab PO DAILY Aspirin [Aspir 81] 81 mg PO DAILY #0 - Discharge Packet/Instructions *Diet: Low sodium *Activity: Walker for assistance. Increase as able. *Pain Management/Treatment: Tylenol (acetaminophen) okay to use for pain. Do not use Mobic (meloxicam) or NSAIDS (ibuprofin, naproxen, or other OTC pain medications) due to Mobic use. *Wound Care: N/A Additional Instructions: Stop aspirin - do not need this medication with Xarelto. Elevate legs at rest. Avoid sodium. These actions can help decrease swelling of legs. Use Xarelto 15mg twice a day with food until that prescription is done. Then switch to 20mg with evening meal. Will need to continue Xarelto for a total of at least 6 months. Do not restart lisinopril or simvastatin until Dr Linton instructs you to do so. *Expected Signs/Symptoms: Gradual improvement of strenght and fuctional abilities. Resolution of fevers. Make take 4 to 6 weeks or more to recover. *Notify Physician if: Temp > 101.4. Passing blood or black/tarry stools. Increased difficulty breathing. *During Business Hours Contact: Dr Linton *After Business Hours Contact: Call [facility] and have Dr Linton or her covering provider contacted. *Pending Lab/Results: Follow up w/Provider - Referrals/Follow Up *Referrals/Follow Up: Di Linton DO [Family Provider] - 1 Week (Hospital F/U - Febrile illness found to be CMV. DVT/PE found. Recommend recheck CMP due to resolving LFT. Lisinopril on hold at discharge due to stability of BP without it. Restart lisinopril as per Dr Linton. Simvastatin on hold at discharge due to elevated liver enzymes - restart simvastatin at Dr Linton' discretion. ) - Patient Handouts - Dismissal Complete Discharge Instructions are:: Complete Physician Narrative - Narrative Physician: Brennon Chatman MD Attestation Narrative: Date: 03/20/17 Time: 1623 I have independently interviewed and examined patient prior to discharge. See my progress note from today for details. Medically stable for discharge to home.
[2017-03-20 16:07] VITALS: PULSE 98
== END 2017-03-20 16:20 | disposition home health service (06) | DRG 865 ==
LOC: ED 20:35 → SUATTDRO 03-11 01:02 → SRG 03-11 01:02
PROVIDERS: ADMIT Hospitalist; ATTEND Hospitalist

== ENCOUNTER 2017-09-24 05:28 | Inpatient (IN) ==
[2017-09-24 05:51] VITALS: BMI 33.4
[2017-09-24] MEDS ORDERED: LIDOCAINE 1% (10mg/ml) 2mL INJ PF SDV ID ONE (06:00)
[2017-09-24] MEDS ORDERED: DEXAMETHASONE 4 MG/ML INJECTION IVP ONE (06:00)
[2017-09-24] MEDS ORDERED: ACETAMINOPHEN 500 MG TABLET PO ONE (06:00)
[2017-09-24] MEDS ORDERED: FAMOTIDINE PB 20 MG/50 ML BAG IV ONE (06:00)
[2017-09-24] MEDS ORDERED: METOCLOPRAMIDE 10mg/2ml INJECTION IVP ONE (06:00)
[2017-09-24] MEDS ORDERED: ONDANSETRON 4 MG/2 ML INJECTION IVP ONE (06:00)
[2017-09-24] MEDS: NS 1,000 ML IV SCH ×5 (06:15→23:52)
[2017-09-24] MEDS: NOZIN NASAL SWAB NAS SCH ×6 (06:30→21:26)
[2017-09-24] MEDS ORDERED: CEFAZOLIN 1 G INJECTION IVP ONE (07:00)
[2017-09-24] MEDS ORDERED: HYDROMORPHONE 2 MG/ML INJECTION IVP PRN (07:07)
--- NOTE | 2017-09-24 07:15 | Anesthesia Preoperative Report ---
Anesthesia Preoperative Record - Date and Time Date: 09/24/17 Preoperative Diagnosis: Rt ASHLYN M16.11 Allergies/Adverse Reactions: Allergies Allergy/AdvReac Type Severity Reaction Status Date / Time amoxicillin Allergy Mild Rash Verified 09/24/17 06:06 - Vital Signs Vital Signs: Temperature 98.4 F 09/24/17 05:49 Pulse Rate 65 09/24/17 06:19 Respiratory Rate 15 09/24/17 05:49 Blood Pressure 135/75 09/24/17 05:49 Pulse Oximetry 96 09/24/17 05:49 Height and Weight: Height 1.79 m Weight 107.3 kg Body Mass Index 33.4 - Medications Inpatient Medications: Current Medications Hydromorphone HCl (Dilaudid) 0 mg IVP Q10M PRN Epinephrine HCl 0.25 mg/Bupivacaine HCl 30 ml/Ketorolac Tromethamine 60 mg/ Sodium Chloride 62.25 mls @ 1 mls/hr OPSITE INTRAOP ONE; Protocol Stop: 09/26/17 22:14 Sodium Chloride (Normal Saline) 1,000 mls @ 50 mls/hr IV .Q20H KEL Last Admin: 09/24/17 06:15 Dose: 50 mls/hr Isopropyl Alcohol (Nozin Nasal Swab) 1 each DEVON Q1M KEL Stop: 09/24/17 13:18 Last Admin: 09/24/17 06:40 Dose: 1 each Miscellaneous Medication (Tranexamic 3gm/Ns 45ml Irr Mix) 75 ml IR O ONE Stop: 09/24/17 13:05 Sodium Chloride (Iv Flush) 10 - 80 ml IV PRN PRN PRN Reason: Flushing Home Medications: Home Medications Medication Instructions Recorded Confirmed Type Mometasone Furoate [Nasonex] 2 spray NS BID #0 03/09/11 09/24/17 History Metoprolol Tartrate 100 mg PO DAILY 03/10/17 09/24/17 History Rivaroxaban [Xarelto] 20 mg PO WS #30 tab 03/20/17 09/17/17 Rx Carboxymethylcellulose Sodium 1 drop EACH EYE QID PRN 06/19/17 09/24/17 History [Refresh Tears] Cetirizine [Zyrtec] 1 tab PO DAILY 06/19/17 09/24/17 History Flomax (tamsulosin) 0.4 mg capsule 0.4 mg PO DAILY 06/19/17 09/24/17 History Hypromellose Eye Gel [Genteal Gel 1 drop EACH EYE HS 06/19/17 09/24/17 History 0.03%] Metoprolol Tartrate 50 mg PO PM 06/19/17 09/24/17 History Multivitamin [One Daily] 1 each PO DAILY 06/19/17 09/24/17 History lisinopril 10 mg tablet 10 mg PO DAILY 09/02/17 09/24/17 History Omeprazole 1 tab PO ACB 09/24/17 09/24/17 History Is Patient on Beta Naomi?: Yes Beta Naomi Last Dose Date/Time: metoprolol 100mg PO - Medical History Respiratory: Reports: Pulmonary Embolism (DVT RLE & RT PE-MAR 2017), Sleep Apnea (uses CPAP) Cardiovascular: Reports: Hypertension, High Cholesterol, Other (DVT secondary to virus Feb 2017) Gastrointestional: Reports: Gastroesophageal Reflux Disease, Other (obesity) Renal/Endocrine: Reports: Renal Failure (CRF stage 3) Other History: Reports: Other (bilat hearing aids) - Surgical History HEENT Surgeries: Reports: Tonsillectomy Respiratory Surgery/Treatments: Reports: CPAP Use Surgery/Treatment: REPORT: Other (cysto) Musculoskeletal Surgery/Tx: Reports: Knee Arthroscopy (right) Anesthesia Reactions: None Hx Family Anesthesia Reaction: No History of Motion Sickness: No - Social History Smoking Status: Never smoker Hx Chewing Tobacco Use: No Second Hand Exposure: No Time spent discussing smoking cessation with patient: 3 to 10 minutes Substance Use Type: does not use Alcohol Intake Frequency: does not drink - Pertinent Findings Laboratory: CBC and BMP 09/24/17 06:00 09/24/17 06:00 BMP 09/24/17 06:00 Sodium 147 H Potassium 3.9 Chloride 106 Carbon Dioxide 30 BUN 15.0 Creatinine 1.0 Glucose 112 H Calcium 9.0 Liver Function 09/24/17 Range/Units 06:00 Total Bilirubin 0.50 (0.20-1.30) MG/DL AST 25 (17-59) U/L ALT 23 (1-50) U/L Alkaline Phosphatase 85 (38-126) U/L Albumin 4.3 (3.5-5.0) g/dL EKG: Sinus Rhythm - Physical Exam Respiratory Exam: Present: lungs clear Cardiovascular Exam: Present: regular rate and rhythm - Airway Assessment Mallampati Score: II TMD: 2 Fingerbreadths Neck Extension: good Overall Assessment: may be difficult mask vent - ASA ASA Score: 3 - Plan Regional/Trunk Block: Spinal - Discussion Discussion: Discussed risks/options/alternatives of anesthesia and questions answered. Patient consents. Nursing pain assessment noted. Present for Discussion: spouse Attestation Statement: Prior to the delivery of any anesthetic medication, I examined the patient, developed the plan, obtained the patient's consent and discussed the risk and benefits of the procedure with the patient/guardian. - Additional Information Seen by Anesthesia: Yes
[2017-09-24] MEDS ORDERED: EPINEPHrine PF 0.25 MG, BUPIVACAINE 0.25% PF 30 ML, KETOROLAC INJ 60 MG in NS 30 ML OPSITE ONE (08:00)
[2017-09-24] MEDS ORDERED: VANCOMYCIN 1,000 MG INJECTION IAR ONE (08:57)
--- NOTE | 2017-09-24 09:06 | Operative Note ---
- Procedure Preoperative Diagnosis: Right hip primary degenerative joint disease Postoperative Diagnosis: Same as preoperative diagnosis. Surgeon: Edwin Bernardo MD Tube Draw Helper: Sharad Giraldo Complications: None. Anesthesia: Spinal. Estimated Blood Loss: See Anesthesia Record. Fluids: Please see Anesthesia Record. Description of Procedure: Mr. Fatima and his right hip were identified and marked in the preoperative holding area. He was brought back to the operating suite and spinal anesthetic was administered. He was then placed in a lateral decubitus position with his right hip up. The right lower extremity was prepped and draped in my normal sterile fashion. Timeout was performed. The [employer] robotic arm was used to assist with the surgery. A pelvic array was placed into the iliac crest through three small incisions. A direct superior approach was utilized. An approximately 12 cm incision was made in the skin and dissection carried down to the muscle fascia which was then split in line with skin incision. The short external rotators were identified and tagged and detached. A capsulotomy was performed and the hip dislocated. A femoral neck osteotomy was performed at the pre-templated level measuring down from the femoral head. The head was removed and acetabulum exposed. Labrum was removed. The acetabulum was then registered with the robot. The robotic arm was then used to ream with a 59 reamer. The robot then was again used to place a 60 Trident cup in 40 of tilt and 25 of anteversion. I placed 1 screw in the posterior superior quadrant 30 mm in length. A liner was then placed. The proximal femur was exposed and prepared with a cookie cutter followed by reaming and broaching to a size 7. We trialed with a standard head. After thorough irrigation a final Accolade 2 size 7 stem with 132 neck was placed. We trialed with a -2.5 head. Leg length and offset were checked with the robot and were good. A final -2.5 ceramic 36 mm head was placed and the hip reduced. Betadine solution was used to irrigate throughout the case. It was followed by normal saline irrigation. Joint cocktail was injected throughout soft tissue. 3 grams of TXA was allowed to sit in the wound for 5 minutes and then suctioned out. The capsulotomy was repaired with Ethibond. Short external rotators were also repaired with Ethibond. 1 g of vancomycin powder was placed into the wound. The muscle fascia was then repaired with #1 Vicryl. I then left my ssn/ssbn assistant navigator to close the subcutaneous tissue with 2-0 Vicryl followed by running 4 -0 Monocryl skin followed by Dermabond and a sterile dressing. The patient with any placed back into supine position and taken to recovery room in the care of anesthesia.
[2017-09-24] MEDS ORDERED: NOZIN NASAL SWAB NAS ONE (10:17)
[2017-09-24] MEDS ORDERED: DiphenhydrAMINE 50 MG/ML INJECTION IVP PRN (10:17)
[2017-09-24] MEDS ORDERED: LORazepam 1 MG TABLET PO PRN (10:17)
[2017-09-24] MEDS ORDERED: DiphenhydrAMINE 25 MG CAPSULE PO PRN (10:17)
[2017-09-24] MEDS ORDERED: REFRESH CLASSIC Eye Drops 0.4ml EACH EYE PRN (10:17)
[2017-09-24] MEDS ORDERED: ONDANSETRON 4 MG/2 ML INJECTION IVP PRN (10:17)
[2017-09-24] MEDS ORDERED: Oxycodone *IR* 5 MG TABLET PO PRN (10:17)
--- NOTE | 2017-09-24 11:04 | XRay Report ---
Indication: postoperative image PROCEDURE: XR pelvis w/ 1 view RT hip: Encounter: Initial Comparison: June 19, 2017 Findings: Postoperative changes of right total hip replacement are seen. There is expected postoperative subcutaneous gas. No evidence of hardware failure or acute fracture. No retained radiopaque surgical instruments or sponges seen. Impression: New right total hip prosthesis without evidence of immediate complication. .
[2017-09-24] MEDS: ACETAMINOPHEN 325 MG TABLET PO SCH ×3 (12:42→20:07)
[2017-09-24] MEDS ORDERED: TRANEXAMIC ACID 3gm/NS 45ml IRR MIX IR ONE (13:04)
[2017-09-24] MEDS ORDERED: SALINE FLUSH 10ml SYRINGE IV PRN (13:04)
[2017-09-24] MEDS ORDERED: DEXAMETHASONE 20 MG/5 ML INJECTION IVP ONE (14:30)
[2017-09-24] MEDS: CEFAZOLIN 2 G in NS 100 ML IV SCH ×2 (16:48→23:58)
[2017-09-24] MEDS: NAPROXEN 220 MG TABLET PO SCH (17:29)
[2017-09-24] MEDS ORDERED: RIVAROXABAN 20 MG TABLET PO SCH (17:30)
[2017-09-24] MEDS: FLUTICASONE NASAL SPRAY 50mcg EA NOSTRIL SCH (20:06)
[2017-09-24] MEDS: DOCUSATE SODIUM 100 MG CAPSULE PO SCH (20:07)
[2017-09-24] MEDS ORDERED: GENTEAL EYE EACH EYE SCH (21:00)
[2017-09-24] MEDS ORDERED: SENNOSIDES 8.6 MG TABLET PO SCH (21:00)
[2017-09-25 00:11] VITALS: RESP 16
[2017-09-25] MEDS: NOZIN NASAL SWAB NAS SCH ×3 (05:45→13:08)
[2017-09-25] MEDS ORDERED: OMEPRAZOLE 20 MG CAPSULE PO SCH (06:30)
[2017-09-25 08:24] VITALS: TEMP 98.2
--- NOTE | 2017-09-25 08:34 | Orthopedic Progress Note ---
Date: Date: 09/25/17 Time: 830 Subjective/Severity of Illness: Rodolfo is lying in bed this morning during rounds. Has been up ambulating. Right hip pain has been well controlled. Denies CP, SOA, nausea. Hgb 12.3 Orthopedic Exam Vital signs: Temperature 98.2 F 09/25/17 08:00 Pulse Rate 78 09/25/17 08:00 Respiratory Rate 16 09/25/17 08:00 Blood Pressure 140/84 H 09/25/17 08:00 Pulse Oximetry 100 09/25/17 08:00 - Constitutional General Appearance: Present: alert, orientated x3, cooperative, no acute distress - Respiratory Exam Present: non-labored - Cardiovascular Exam Present: pedal pulses intact - Abdominal Exam Present: soft. Absent: tenderness, distended - Extremities Exam Present: pulses intact. Absent: calf tenderness - Dressing Dressing: dry, intact, no drainage Comments: mepilex dressing right hip - Integumentary Exam Present: pink, warm, dry - Neurological Exam Present: intact to light touch, no deficits - Psychiatric Exam Present: alert, oriented - Labs Result Diagrams: 09/25/17 04:02 09/25/17 04:02 Abnormal lab results 09/25/17 09/25/17 Range/Units 04:02 04:02 Hgb 12.3 L D (13.5-17.5) GM/DL Chloride 111 H (98-107) MEQ/L Glucose 123 H (75-110) MG/DL Calcium 8.3 L (8.4-10.2) MG/DL H & H 09/24/17 09/25/17 Range/Units 06:00 04:02 Hgb 14.7 12.3 L D (13.5-17.5) GM/DL Hct 43.4 (41-53) % Orthopedic Assessment and Plan (1) Status post right hip replacement Status: Acute Assessment and Plan: Current anti-coagulation protocol for VTE prophylaxis. SCD's for added protection. PT/OT services to improve independent function. Discharge Planning per Case Management. - Anticoagulation Therapy Anticoagulation: other (xarelto- history of DVT with PE) - Additional Diagnoses Hypertension: stable, resume medications Anemia: no intervention required, patient was asymptomatic, labs monitored CKD: labs monitored and stable Hospital Course Summary Disclaimer: The visit summary below is not to be considered part of the above Progress Note.
[2017-09-25] MEDS: FLUTICASONE NASAL SPRAY 50mcg EA NOSTRIL SCH (08:42)
[2017-09-25] MEDS: DOCUSATE SODIUM 100 MG CAPSULE PO SCH (08:43)
[2017-09-25] MEDS: ACETAMINOPHEN 325 MG TABLET PO SCH ×2 (08:43→12:07)
[2017-09-25] MEDS: NAPROXEN 220 MG TABLET PO SCH (08:43)
[2017-09-25] MEDS: POLYETHYL GLYCOL 3350 17gm PACKET PO SCH ×2 (08:44→11:55)
[2017-09-25] MEDS ORDERED: CETIRIZINE 10 MG TABLET PO SCH (09:00)
[2017-09-25] MEDS ORDERED: LISINOPRIL 10 MG TABLET PO SCH (09:00)
[2017-09-25] MEDS ORDERED: TAMSULOSIN 0.4 MG CAPSULE PO SCH (09:00)
[2017-09-25] MEDS ORDERED: SENNOSIDES 8.6 MG TABLET PO PRN (09:30)
[2017-09-25 12:28] VITALS: BP 126/69; PULSE 61; O2SAT 99
--- NOTE | 2017-09-25 16:11 | Discharge Summary ---
Orthopedic Discharge Info Date of admission: 09/24/17 05:28 Anticipated date of discharge: 09/25/17 Primary care physician: Di Linton DO Attending Physician: Joey Bernardo MD Consults: 09/24/17 05:36 Consult to Anesthesiology [CONS] Routine Reason For Exam: Preoperative Assessment 09/24/17 10:17 Case Management Consult [CONS] Routine Reason For Exam: Discharge Planning DME-Walker [CONS] Routine Height: 5 ft 10.5 in Weight: 107.3 kg Total Joint Outpatient Therapy [CONS] Routine Comment: Remove dressing in 2 weeks - Discharge Diagnosis (1) Status post right hip replacement Status: Acute - Laboratory Result Diagrams: 09/25/17 04:02 09/25/17 04:02 Laboratory: Abnormal lab results 09/25/17 09/25/17 Range/Units 04:02 04:02 Hgb 12.3 L D (13.5-17.5) GM/DL Chloride 111 H (98-107) MEQ/L Glucose 123 H (75-110) MG/DL Calcium 8.3 L (8.4-10.2) MG/DL H & H 09/24/17 09/25/17 Range/Units 06:00 04:02 Hgb 14.7 12.3 L D (13.5-17.5) GM/DL Hct 43.4 (41-53) % Orthopedic Discharge HPI - HPI Comments This patient was admitted for elective surgical tx of end stage degenerative joint disease that failed to respond to conservative treatment. Further details of this is found in the admission H&P. Orthopedic Hospital Course Hospital course: 09/25/17 16:08 After appropriate preoperative clearance and signing of operative consent, the patient was given IV antibiotics, according to orthopedic protocol. The patient was taken to the operating room and underwent elective joint arthroplasty. Following surgery, antibiotics were discontinued less than 24 hours according to joint protocol. Appropriate anticoagulants were initiated with Xarelto daily x 30 days due to patient's history of DVT and PE. SCDs added for DVT prevention , patient was also sent home with home SCDs to where when sitting or lying in bed. The dressing was clean, dry, and intact. Pain control was obtained via multimodal approach. Bowel motivation addressed with scheduled and PRN medications. Early mobilization was initiated through PT services. Discharge arrangements made by a collaborative effort between the patient and Case Management. Home medications were restarted for HTN, BP remained well controlled. CKD stage 3, GRF remained stable of 68 during stay. Electrolytes within normal limits. Post op anemia with Hgb 12.3, patient asymptomatic, no acute intervention required. Patient scheduled to for medical follow up with PCP in 1 week post-op. Follow-up is scheduled in 2-3 weeks. Discharge instructions given by orthopedic providers and nursing staff at discharge. Discharge condition was good. 09/25/17 16:10 Care extended to > 2 midnight stays?: No Discharge Plan - Med Rec/Dispo Referrals/Follow Up: Nikki Varma APRN [Advanced Practice Nurse] - 10/16/17 2:15 pm Di Linton DO [Primary Care Provider] - 10/01/17 2:20 pm Casa Instructions: [facility] Postop Instructions Additional Instructions: [facility] ON 10/01/2015 AT 9:15AM FOR PHYSICAL THERAPY EVAL. PHONE [phone] OPTION 3 Prescriptions: New Oxycodone *IR* [Roxicodone *Ir*] 5 - 15 mg PO Q3H PRN #60 tab PRN Reason: Breakthrough Pain Acetaminophen [Tylenol] 650 mg PO QID tab Docusate Sodium [Colace] 100 mg PO BID cap Milk of Magnesia [Mom] 30 ml PO DAILY udc PEG 3350 17gm PACKET [Miralax] 17 gm PO DAILY packet Continue Cetirizine [Zyrtec] 1 tab PO DAILY Multivitamin [One Daily] 1 each PO DAILY Carboxymethylcellulose Sodium [Refresh Tears] 1 drop EACH EYE QID PRN PRN Reason: Dry Eyes Omeprazole 1 tab PO ACB Rivaroxaban [Xarelto] 20 mg PO WS #30 tab Mometasone Furoate [Nasonex] 2 spray NS BID #0 Metoprolol Tartrate 100 mg PO DAILY Metoprolol Tartrate 50 mg PO PM Hypromellose Eye Gel [Genteal Gel 0.03%] 1 drop EACH EYE HS Flomax (tamsulosin) 0.4 mg capsule 0.4 mg PO DAILY lisinopril 10 mg tablet 10 mg PO DAILY - Disposition 01 Discharged Home, Self-Care - Dismissal Complete Discharge Instructions are:: Complete
[2017-09-26] MEDS ORDERED: BISACODYL 10 MG SUPPOSITORY RECTALLY SCH (20:00)
== END 2017-09-25 16:30 | disposition home or self-care (01) | DRG 470 ==
LOC: NMC.PERIOP 05:28 → SRG 10:11
PROVIDERS: ADMIT Orthopaedic Surgery; ATTEND Orthopaedic Surgery